=== PATIENT | female | born 1985 | race Caucasian/White ===

== ENCOUNTER 2018-08-11 15:03 | Emergency (ER) | payer MEDICARE, MEDICAID ==
--- NOTE | 2018-08-11 15:27 | ER Document Report ---
ED Medical Screen (RME) - General Chief Complaint: Suicidal Ideation Stated Complaint: PSYCH EVAL/SUICIDAL IDEATION Time Seen by Provider: 08/11/18 15:21 Notes: Patient is a 33-year-old female with autism spectrum disorder and depression that presents to the emergency department for chief complaint of suicidal ideation and attempt. 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 ROS: Other than noted above, the 12 point review of systems was reviewed with the patient and were negative, all pertinent findings are included in the HPI. PHYSICAL EXAMINATION: Vital signs reviewed. GENERAL: Well-appearing, well-nourished and in no acute distress. HEAD: Atraumatic, normocephalic. EYES: Pupils equal round extraocular movements intact, conjunctiva are normal. ENT: Nares patent NECK: Normal range of motion CV: Heart rate tachycardic, regular rhythm LUNGS: No respiratory distress Musculoskeletal: Normal range of motion NEUROLOGICAL: Normal speech Skin: There is a superficial laceration to the left wrist, no active bleeding, tendon function intact. PSYCH: Flat affect, constantly rocking in the chair MDM: Patient seen and examined for rapid initial assessment. Vital signs reviewed. A comprehensive ED assessment and evaluation of the patient, analysis of test results and completion of the medical decision making process will be conducted by additional ED providers. *Note is created using voice recognition software and may contain spelling, syntax or grammatical errors. TRAVEL OUTSIDE OF THE [place] IN LAST 30 DAYS: No - Related Data Allergies/Adverse Reactions: Penicillins Allergy (Verified 08/11/18 15:04) Physical Exam - Vital signs Vitals: Temp Pulse Resp BP Pulse Ox 97.8 F 113 H 18 118/69 97 08/11/18 15:07 08/11/18 15:07 08/11/18 15:07 08/11/18 15:07 08/11/18 15:07 Course - Vital Signs Vital signs: Temp Pulse Resp BP Pulse Ox 97.8 F 113 H 18 118/69 97 08/11/18 15:07 08/11/18 15:07 08/11/18 15:07 08/11/18 15:07 08/11/18 15:07
--- NOTE | 2018-08-11 15:49 | EKG REPORT ---
SEVERITY:- OTHERWISE NORMAL ECG - SINUS TACHYCARDIA : Confirmed by: Serena Augustin MD 11-Aug-2018 15:48:46
[2018-08-11 15:53] LABS: ABSOLUTE BASOPHILS # (AUTO) 0.1 10^3/uL (0.0-0.2); ABSOLUTE EOSINOPHILS # (AUTO) 0.6 10^3/uL (0.0-0.6); ABSOLUTE LYMPHOCYTES (AUTO) 2.7 10^3/uL (0.5-4.7); ABSOLUTE MONOCYTES (AUTO) 0.7 10^3/uL (0.1-1.4); ABSOLUTE NEUT (AUTO) 9.2 10^3/uL (1.7-8.2); BASOPHILS % (AUTO) 0.9 % (0-2); EOSINOPHILS % (AUTO) 4.5 % (0-6); HEMATOCRIT 36.2 % (36.0-47.0); HEMOGLOBIN 11.7 g/dL (12.0-15.5); LYMPHOCYTES % (AUTO) 20.3 % (13-45); MEAN CORPUSCULAR HEMOGLOBIN 24.6 pg (27.0-33.4); MEAN CORPUSCULAR HGB CONC 32.3 g/dL (32.0-36.0); MEAN CORPUSCULAR VOLUME 76 fl (80-97); MONOCYTES % (AUTO) 5.1 % (3-13); PLATELET COUNT 415 10^3/uL (150-450); RED BLOOD COUNT 4.75 10^6/uL (3.72-5.28); RED CELL DISTRIBUTION WIDTH 15.6 % (11.5-14.0); SEGMENTED NEUTROPHILS % (AUTO) 69.2 % (42-78); TOTAL CELLS COUNTED % (AUTO) 100 %; WHITE BLOOD COUNT 13.3 10^3/uL (4.0-10.5)
[2018-08-11 16:03] LABS: APPEARANCE,URINE SLIGHTLY-CLOUDY; BILIRUBIN,URINE NEGATIVE (NEGATIVE); COLOR,URINE YELLOW; GLUCOSE, URINE NEGATIVE (NEGATIVE); KETONES,URINE NEGATIVE (NEGATIVE); LEUKOCYTE ESTERASE,URINE NEGATIVE (NEGATIVE); NITRITE,URINE NEGATIVE (NEGATIVE); PROTEIN,URINE >=500 mg/dL (NEGATIVE); URINE SPECIFIC GRAVITY 1.025; UROBILINOGEN,URINE NEGATIVE mg/dL (<2.0)
[2018-08-11 16:09] LABS: URINE AMPHETAMINES SCREEN NEGATIVE; URINE BARBITURATES SCREEN NEGATIVE; URINE BENZODIAZEPINES SCREEN NEGATIVE; URINE COCAINE SCREEN NEGATIVE; URINE MARIJUANA (THC) SCREEN NEGATIVE; URINE METHADONE SCREEN NEGATIVE; URINE PHENCYCLIDINE SCREEN NEGATIVE
[2018-08-11 16:11] LABS: ALANINE AMINOTRANSFERASE 11 U/L (9-52); ALBUMIN 4.3 g/dL (3.5-5.0); ALKALINE PHOSPHATASE 114 U/L (38-126); ANION GAP 15 (5-19); ASPARTATE AMINO TRANSFERASE 23 U/L (14-36); BILIRUBIN,DIRECT 0.2 mg/dL (0.0-0.4); BILIRUBIN,TOTAL 0.3 mg/dL (0.2-1.3); BLOOD UREA NITROGEN 13 mg/dL (7-20); CALCIUM 9.9 mg/dL (8.4-10.2); CARBON DIOXIDE 25 mmol/L (22-30); CHLORIDE 104 mmol/L (98-107); GLUCOSE 111 mg/dL (75-110); POTASSIUM 4.2 mmol/L (3.6-5.0); SODIUM 143.6 mmol/L (137-145); TOTAL PROTEIN 8.1 g/dL (6.3-8.2)
[2018-08-11 16:12] LABS: ACETAMINOPHEN < 10 ug/mL (10-30); ALCOHOL < 10 mg/dL (NONE DETECTED); SALICYLATE < 1.0 mg/dL (2.0-20.0)
--- NOTE | 2018-08-11 16:19 | ER Document Report ---
ED General - General Chief Complaint: Suicidal Ideation Stated Complaint: PSYCH EVAL/SUICIDAL IDEATION Time Seen by Provider: 08/11/18 15:21 TRAVEL OUTSIDE OF THE [place] IN LAST 30 DAYS: No - HPI Notes: Patient is a 33-year-old female with a history of autism, anxiety, bipolar who presents to the ED with sister for suicidal ideation, planning, and self-harm with a thumbtack. The situation began when she was at her program and was from a boy that she likes. She immediately grabbed a thumb tack off of the wall and started cutting her wrists which is when the program called her sister who picked her up. Sister states that when they got home the patient was very agitated and started throwing things and trying to grab knives to slit her wrists. Patient stated that she wanted to come to the emergency department. Sister states that she has a history of this type of behavior in the past, But it has never lasted this long. Usually her behavior comes down within an hour but this 1 has remained for multiple. She has otherwise been eating and drinking without difficulties. She is urinating normally and having normal bowel movements. She denies any smoking or illicit drug abuse. Denies any headache, fever, head injury, neck pain, changes in vision/speech/hearing, URI, sore throat, chest pain, palpitations, syncope, cough, shortness of breath , wheeze, dyspnea, abdominal pain, nausea/vomiting/diarrhea, urinary retention, dysuria, hematuria, loss of control of bowel or bladder, numbness/tingling, saddle anesthesia, muscle paralysis/weakness, or rash. - Related Data Allergies/Adverse Reactions: iodine Allergy (Verified 08/11/18 15:26) Hives Penicillins Allergy (Verified 08/11/18 15:04) Past Medical History - Social History Smoking Status: Never Smoker Chew tobacco use (# tins/day): No Frequency of alcohol use: Rare Drug Abuse: None Family History: Reviewed & Not Pertinent Patient has suicidal ideation: Yes Patient has homicidal ideation: No - Past Medical History Cardiac Medical History: Reports: Hx Hypercholesterolemia Renal/ Medical History: Denies: Hx Peritoneal Dialysis Psychiatric Medical History: Reports: Hx Bipolar Disorder, Hx Depression Past Surgical History: Reports: Hx Breast Surgery, Hx Cholecystectomy, Hx Tubal Ligation Review of Systems - Review of Systems -: Yes All other systems reviewed and negative Physical Exam - Vital signs Vitals: Temp Pulse Resp BP Pulse Ox 97.8 F 113 H 18 118/69 97 08/11/18 15:07 08/11/18 15:07 08/11/18 15:07 08/11/18 15:07 08/11/18 15:07 - Notes Notes: PHYSICAL EXAMINATION: GENERAL: Well-appearing, well-nourished and in no acute distress. A&Ox4. Answers questions appropriately. Smiling, cooperative. HEAD: Atraumatic, normocephalic. EYES: Pupils equal round and reactive to light, extraocular movements intact, sclera anicteric, conjunctiva are normal. ENT: EAC clear b/l. TM's intact b/l without erythema, fluid, or perforation. Nares patent and without discharge. oropharynx clear without exudates. No tonsilar hypertrophy or erythema. Moist mucous membranes. No sinus tenderness. NECK: Normal range of motion, supple without lymphadenopathy LUNGS: Breath sounds clear to auscultation bilaterally and equal. No wheezes rales or rhonchi. HEART: Regular rate and rhythm without murmurs, rubs, gallops. ABDOMEN: Soft, nontender, nondistended abdomen. No guarding, no rebound. No masses appreciated. Normal bowel sounds present. No CVA tenderness bilaterally. Musculoskeletal: FROM to passive/active. Strength 5+/5. Extremities: No cyanosis, clubbing, or edema b/l. Peripheral pulses 2+. Capillary refill less than 3 seconds. NEUROLOGICAL: Cranial nerves grossly intact. Normal speech, normal gait. Normal sensory, motor exams PSYCH: Normal mood, normal affect. SKIN: you can see that the patient bites her nails often. There are 3 superficial abrasions horizontally on the left wrist, none on the right. Pt is right hand-ed. Course - Re-evaluation Re-evalutation: 08/11/18 16:20 Labs and EKG grossly unremarkable. Pt currently stable and without any agressive behavior. Pt medically cleared pending TSH lab that is still pending. Psychology team will be assessing soon. 08/11/18 18:20 TSH negative. Our psychology team placed patient on a '24 hour hold' for further evaluation in the morning. Pt in agreement with plan. No new concerns or complaints. Dinner tray has already been ordered for her. - Vital Signs Vital signs: Temp Pulse Resp BP Pulse Ox 97.8 F 113 H 18 118/69 97 08/11/18 15:07 08/11/18 15:07 08/11/18 15:07 08/11/18 15:07 08/11/18 15:07 - Laboratory Result Diagrams: 08/11/18 15:35 08/11/18 15:35 Laboratory results interpreted by me: 08/11/18 08/11/18 08/11/18 15:21 15:35 15:35 WBC 13.3 H Hgb 11.7 L MCV 76 L MCH 24.6 L RDW 15.6 H Absolute Neutrophils 9.2 H Glucose 111 H Urine Protein >=500 H Urine Ascorbic Acid 40 H Salicylates < 1.0 L Acetaminophen < 10 L Discharge - Discharge Clinical Impression: Suicidal behavior with attempted self-injury Condition: Stable Disposition: PSYCH HOSP/UNIT
--- NOTE | 2018-08-11 20:42 | PSYCHOLOGICAL NOTE ---
Psych Note - Psych Note Date seen by psych provider: 08/11/18 Psych Note: Reason for Consult: Suicide Ideation Patient is a 33-year-old female with a history of autism, anxiety, bipolar who presents to the ED with sister for suicidal ideation, planning, and self-harm with a thumbtack. Autism Impression/plan: Patient is recommended for overnight mental health observation. Patient had a behavioral outburst at her day program after being from a chandu she was getting to "physical" with. She has superficial cuts on her wrist and her mobile electronics installer (sister) reports the patient will have outbursts like this every few months, normally over a chandu. The patient still continues to disclose being upset. Patient and family will benefit with respite and patient will be re-evaluated tomorrow with probable discharge in the morning. Dr. Mckenna was consulted on the care and management of this patient; attending physician is in agreement with recommendations and disposition.
[2018-08-12] MEDS ORDERED: MONTELUKAST SODIUM 10 MG TABLET PO ONE (10:09)
--- NOTE | 2018-08-12 10:09 | ER Document Report ---
Doctor's Note Notes: 08/12/18 10:08 As the rounding physician this AM, I assessed the patient's labs, vitals, and records. No concerning findings this morning. Patient denies any acute complaints. Patient is cleared for disposition by psychiatry. Patient requesting Singulair. Patient will be discharged home with recommendations to continue her home medications. PHYSICAL EXAMINATION: GENERAL: Well-appearing, well-nourished and in no acute distress. HEAD: Atraumatic, normocephalic. EYES: Pupils equal round extraocular movements intact, conjunctiva are normal. ENT: Nares patent NECK: Normal range of motion LUNGS: No respiratory distress Musculoskeletal: Normal range of motion NEUROLOGICAL: Normal speech, normal gait. PSYCH: Normal mood, normal affect. SKIN: Warm, Dry, normal turgor, no rashes or lesions noted. 08/12/18 10:48
[2018-08-12 11:02] VITALS: BP 122/68
== END 2018-08-12 11:02 | disposition home or self-care (01) ==
LOC: ER 15:03
DX: S60.812A Abrasion of left wrist, initial encounter (principal); W26.8XXA Contact with other sharp object(s), not elsewhere classified, initial encounter; F84.0 Autistic disorder; Z88.0 Allergy status to penicillin
CPT/HCPCS: 93005; 99285; 36415; 80307 ×4; 84443; 85025; 80053; 81001; 93010; A9270

== ENCOUNTER 2019-02-20 18:18 | Emergency (ER) | payer MEDICARE, MEDICAID ==
--- NOTE | 2019-02-20 18:45 | ER Document Report ---
ED Medical Screen (RME) - General Chief Complaint: Suicidal Ideation Stated Complaint: SI WITH PLANS Time Seen by Provider: 02/20/19 18:38 Primary Care Provider: VALORIE SHUKLA DO [Primary Care Provider] - Follow up as needed Notes: Patient is a 33-year-old female who presents to the emergency department with suicidal ideations. She states that last night she took some toenail clippers and tried to cut her thigh. She states that she wants to hurt herself and sometimes hurt her sister. She states that she feels like she is being taken advantage of by some men. She is bipolar, has depression, and is autistic. She is taking her medications as prescribed. Exam: Breath sounds normal. S1-S2. Normal rate. Calm and cooperative. I have greeted and performed a rapid initial assessment of this patient. A comprehensive ED assessment and evaluation of the patient, analysis of test results and completion of medical decision making process will be conducted by an additional ED providers. TRAVEL OUTSIDE OF THE [place] IN LAST 30 DAYS: No - Related Data Allergies/Adverse Reactions: iodine Allergy (Verified 08/11/18 15:26) Hives Penicillins Allergy (Verified 08/11/18 15:04) Past Medical History - Past Medical History Cardiac Medical History: Reports: Hx Hypercholesterolemia Renal/ Medical History: Denies: Hx Peritoneal Dialysis Psychiatric Medical History: Reports: Hx Bipolar Disorder, Hx Depression Past Surgical History: Reports: Hx Breast Surgery, Hx Cholecystectomy, Hx Tubal Ligation Physical Exam - Vital signs Vitals: Temp Pulse Resp BP Pulse Ox 98.3 F 91 12 116/63 97 02/20/19 18:36 02/20/19 18:36 02/20/19 18:36 02/20/19 18:36 02/20/19 18:36 Course - Vital Signs Vital signs: Temp Pulse Resp BP Pulse Ox 98.3 F 91 12 116/63 97 02/20/19 18:36 02/20/19 18:36 02/20/19 18:36 02/20/19 18:36 02/20/19 18:36 Doctor's Discharge - Discharge Referrals: VALORIE SHUKLA DO [Primary Care Provider] - Follow up as needed
[2019-02-20 19:18] LABS: ABSOLUTE BASOPHILS # (AUTO) 0.1 10^3/uL (0.0-0.2); ABSOLUTE LYMPHOCYTES (AUTO) 3.3 10^3/uL (0.5-4.7); ABSOLUTE NEUT (AUTO) 7.7 10^3/uL (1.7-8.2); BASOPHILS % (AUTO) 0.5 % (0-2); EOSINOPHILS % (AUTO) 7.3 % (0-6); HEMATOCRIT 41.2 % (36.0-47.0); HEMOGLOBIN 13.6 g/dL (12.0-15.5); LYMPHOCYTES % (AUTO) 25.5 % (13-45); MEAN CORPUSCULAR HEMOGLOBIN 26.9 pg (27.0-33.4); MEAN CORPUSCULAR HGB CONC 33.1 g/dL (32.0-36.0); MEAN CORPUSCULAR VOLUME 81 fl (80-97); MONOCYTES % (AUTO) 7.7 % (3-13); PLATELET COUNT 365 10^3/uL (150-450); RED BLOOD COUNT 5.07 10^6/uL (3.72-5.28); RED CELL DISTRIBUTION WIDTH 16.2 % (11.5-14.0); TOTAL CELLS COUNTED % (AUTO) 100 %; WHITE BLOOD COUNT 13.1 10^3/uL (4.0-10.5)
[2019-02-20 19:36] LABS: ALANINE AMINOTRANSFERASE 51 U/L (9-52); ALBUMIN 4.5 g/dL (3.5-5.0); ALKALINE PHOSPHATASE 110 U/L (38-126); ANION GAP 14 (5-19); ASPARTATE AMINO TRANSFERASE 61 U/L (14-36); BILIRUBIN,DIRECT 0.3 mg/dL (0.0-0.4); BILIRUBIN,TOTAL 0.5 mg/dL (0.2-1.3); BLOOD UREA NITROGEN 10 mg/dL (7-20); CALCIUM 10.3 mg/dL (8.4-10.2); CARBON DIOXIDE 27 mmol/L (22-30); CHLORIDE 105 mmol/L (98-107); GLUCOSE 89 mg/dL (75-110); POTASSIUM 4.5 mmol/L (3.6-5.0); SODIUM 145.8 mmol/L (137-145); TOTAL PROTEIN 8.4 g/dL (6.3-8.2)
[2019-02-20 19:37] LABS: ACETAMINOPHEN < 10 ug/mL (10-30); ALCOHOL < 10 mg/dL (NONE DETECTED); SALICYLATE < 1.0 mg/dL (2.0-20.0)
[2019-02-20 19:45] LABS: URINE AMPHETAMINES SCREEN NEGATIVE; URINE BARBITURATES SCREEN NEGATIVE; URINE BENZODIAZEPINES SCREEN NEGATIVE; URINE COCAINE SCREEN NEGATIVE; URINE MARIJUANA (THC) SCREEN NEGATIVE; URINE METHADONE SCREEN NEGATIVE; URINE PHENCYCLIDINE SCREEN NEGATIVE
[2019-02-20 19:52] LABS: AMORPHOUS SEDIMENT,URINE TRACE /HPF; APPEARANCE,URINE CLOUDY; BILIRUBIN,URINE NEGATIVE (NEGATIVE); GLUCOSE, URINE NEGATIVE (NEGATIVE); KETONES,URINE NEGATIVE (NEGATIVE); LEUKOCYTE ESTERASE,URINE MODERATE (NEGATIVE); NITRITE,URINE NEGATIVE (NEGATIVE); PROTEIN,URINE 30 mg/dL (NEGATIVE); URINE SPECIFIC GRAVITY 1.019; UROBILINOGEN,URINE NEGATIVE mg/dL (<2.0)
[2019-02-20 19:55] LABS: COLOR,URINE YELLOW
--- NOTE | 2019-02-20 21:31 | ER Document Report ---
ED Psych Disorder / Suicide - General Mode of Arrival: Ambulatory Information source: Patient TRAVEL OUTSIDE OF THE [place] IN LAST 30 DAYS: No <MATTHEW PINTO - Last Filed: 02/20/19 21:29> <NAVI TRIPP - Last Filed: 02/21/19 13:19> <PHILLIP SHARPE - Last Filed: 02/21/19 14:30> - General Chief Complaint: Suicidal Ideation Stated Complaint: SI WITH PLANS Time Seen by Provider: 02/20/19 18:38 Primary Care Provider: [facility] [Provider Group] - 02/22/19 [facility] [Outside] - 02/22/19 [facility] [Outside] - Follow up as needed VALORIE SHUKLA DO [NO LOCAL MD] - Follow up as needed Notes: Patient is an otherwise healthy 33-year-old female presented to the emergency de partment with mobile crisis for suicidal ideation. Patient reports history of bipolar, depression, autism and history of self-mutilation. Patient reports over the last few days she has been having increased depression. She states that yesterday she made some superficial cuts to her right thigh. She reports she is seen by a provider at [facility] for her medication management. [facility] she describes as a day [facility]. Patient denies any homicidal ideations. At the time of my evaluation patient reports that her suicidal thoughts have subsided. Patient does report being here for an overnight stay approximately 1 year ago. (MATTHEW PINTO) - Related Data Allergies/Adverse Reactions: iodine Allergy (Verified 08/11/18 15:26) Hives Penicillins Allergy (Verified 08/11/18 15:04) Past Medical History - Social History Smoking Status: Never Smoker Frequency of alcohol use: None Drug Abuse: None Family History: Reviewed & Not Pertinent Patient has suicidal ideation: Yes Patient has homicidal ideation: No - Past Medical History Cardiac Medical History: Reports: Hx Hypercholesterolemia Renal/ Medical History: Denies: Hx Peritoneal Dialysis Psychiatric Medical History: Reports: Hx Bipolar Disorder, Hx Depression Past Surgical History: Reports: Hx Breast Surgery, Hx Cholecystectomy, Hx Tubal Ligation <MATTHEW PINTO - Last Filed: 02/20/19 21:29> - Vital signs Vitals: Temp Pulse Resp BP Pulse Ox 98.3 F 91 12 116/63 97 06/01/19 18:36 02/20/19 18:36 02/20/19 18:36 02/20/19 18:36 02/20/19 18:36 Course - Laboratory Result Diagrams: 02/20/19 19:00 02/20/19 19:00 <MATTHEW PINTO - Last Filed: 02/20/19 21:29> - Laboratory Result Diagrams: 02/20/19 19:00 02/20/19 19:00 <NAVI TRIPP - Last Filed: 02/21/19 13:19> - Laboratory Result Diagrams: 02/20/19 19:00 02/20/19 19:00 <PHILLIP SHARPE - Last Filed: 02/21/19 14:30> - Vital Signs Vital signs: Temp Pulse Resp BP Pulse Ox 97.8 F 87 20 120/68 100 02/21/19 06:00 02/21/19 14:22 02/21/19 06:00 02/21/19 14:22 02/21/19 14:22 - Laboratory Laboratory results interpreted by me: 02/20/19 02/20/19 02/20/19 19:00 19:00 19:00 WBC 13.1 H MCH 26.9 L RDW 16.2 H Eosinophils % 7.3 H Absolute Eosinophils 1.0 H Sodium 145.8 H Calcium 10.3 H AST 61 H Total Protein 8.4 H Urine Protein 30 H Urine Blood LARGE H Ur Leukocyte Esterase MODERATE H Salicylates < 1.0 L Acetaminophen < 10 L Discharge <MATTHEW PINTO - Last Filed: 02/20/19 21:29> <NAVI TRIPP - Last Filed: 02/21/19 13:19> <PHILLIP SHARPE - Last Filed: 02/21/19 14:30> - Discharge Clinical Impression: Suicidal ideation, Self-injurious behavior, History of autism Clinical Impression: (Ruled Out): High-functioning autism spectrum disorder Condition: Stable Disposition: HOME, SELF-CARE Additional Instructions: You have been evaluated by both medical and behavioral health providers while in the emergency department. You have been cleared from both acute medical and psychiatric issues. It is felt your self injury and expression of suicidal ideation is a symptom of your Autism Spectrum Disorder and behavioral (not getting what your want). There are better coping skills that can be utilized. You and your therapist should identify triggers and coping skills that are positive/effective. DEPRESSION: (often a symptoms seen in individuals with Autism Spectrum Disorder, may present behaviorally) Your evaluation reveals that you have mental depression. While symptoms may be vague, they often include disturbance of sleep, fatigue, loss of appetite, and general loss of interest in life. While depression may be a side effect of drugs, or a reaction to a major change in your life, many cases have no known cause. If depression is acute, and related to a major loss in your life, you can expect it to clear completely with time. If you have been depressed a long time, are prone to repeated bouts of depression or low mood, or have been thinking of suicide, get help. Depression can be treated with anti-depressant medication and counselling. Long-term depression will often take a few weeks to clear, even with appropriate medication. Follow-up care is important. Anxiety (often a symptoms seen in individuals with Autism Spectrum Disorder, may present behaviorally) The physician feels that some of your health problems are being caused by anxiety. Anxiety affects your health in many ways. Anxiety alone can cause palpitations, sweats, chest pains, abdominal pains, shortness of breath, and headaches. It contributes to ulcer disease, high blood pressure, irritable bowel syndrome, and has been shown to cause flare-ups of many other diseases. Anxiety is not a simple disorder to treat. If the anxiety is due to recent life stresses, you may simply need time to "work through" the changes. If the anxiety is due to an underlying unhappiness with yourself or due to psychiatric disturbance, professional help will be needed. Your physician can refer you for further help if needed. Anti-anxiety medication is occasionally given if the stress is acute or if you are having trouble sleeping. Chronic or frequent use of these medications is not a good idea because the body becomes reliant on it, preventing you from dealing with life's normal stresses. SUICIDAL IDEATION: (also self injurious behavior) Suicidal ideation is a common medical term for thoughts about suicide, which may be as detailed as a formulated plan, without the suicidal act itself. Although most people who undergo suicidal ideation do not commit suicide, some go on to make suicide attempts. The range of suicidal ideation varies greatly from fleeting to detailed planning, role playing, and unsuccessful attempts. While thoughts about suicide are common, most people do not carry out serious actions to commit suicide. Based upon your evaluation and discussion with you, we do not believe you are currently at risk to act upon your thoughts of suicide. You have agreed to return to the Emergency Department, at any time, if you feel inclined to act upon your suicidal thoughts. FOLLOW-UP CARE: You should follow up with Dr. Weathers at [facility] ([facility]). for medication management first thing tomorrow (02/22/19) morning as a walk in. You should continue individual therapy with Dylan Kessler at [facility]. You should continue your day treatment program at [facility] Friday-Friday. Coordination with all professional providers will be important for behavior management/modification. You have been provided the [facility] Mobile [facility] number for crisis, talk therapy and linkage to other services/supports. If you experience worsening or a significant change in your symptoms, notify the physician immediately, utilize mobile crisis or return to the Emergency Department at any time for re-evaluation. Prescriptions: Sulfamethoxazole/Trimethoprim [Septra-Ds 800-160 mg Tablet] 1 tab PO BID #6 tablet Referrals: VALORIE SHUKLA, [NO LOCAL MD] - Follow up as needed [facility] [Outside] - Follow up as needed [facility] [Outside] - 02/22/19 [facility] [Provider Group] - 02/22/19
[2019-02-20] MEDS ORDERED: SULFAMETHOXAZOLE/TRIMETHOPRIM 800-160 MG TABLET PO ONE (22:00)
[2019-02-20] MEDS: SULFAMETHOXAZOLE/TRIMETHOPRIM 800-160 MG TABLET PO SCH (23:03)
--- NOTE | 2019-02-20 23:48 | EKG REPORT ---
SEVERITY:- NORMAL ECG - SINUS RHYTHM : Confirmed by: Serena Augustin MD 20-Feb-2019 23:47:25
[2019-02-21] MEDS: SULFAMETHOXAZOLE/TRIMETHOPRIM 800-160 MG TABLET PO SCH (09:01)
[2019-02-21 14:24] VITALS: BP 120/68
--- NOTE | 2019-02-21 14:33 | ER Document Report ---
Doctor's Note Notes: 02/21/19 14:32 Rounds: Chart reviewed and patient interviewed. Labs suggest a UTI and patient has been started on a sulfa antibiotic. Vital signs are all essentially normal. Patient appears to be medically stable for transfer or discharge. Yelena Dawkins MD 02/21/19 14:33 Patient was given a prescription for Septra DS to take twice a day for the next 3 days. Yelena Dawkins MD
--- NOTE | 2019-02-23 12:40 | PSYCHOLOGICAL NOTE ---
Psych Note - Psych Note Date seen by psych provider: 02/21/19 Psych Note: Diagnosis: Autism Spectrum Disorder by History Bipolar by History Depression by History Impression/Plan: Patient is cleared from acute psychiatric services. She denied current SI/HI and no observed psychosis. She said she felt better today than yesterday and was in the ED for cutting/suicidal. She reported she sees female Dr. Weathers at [facility] for medication management, just started therapy a couple weeks ago with Dylan Ricketts at [facility] aqnd goes to a day treatment program M-F at [place]. Obtained collateral from sister who noted patient gets a temper tantrum when she doesn't get what she wants, it has happened numerous times, understands it will keep happening due to Autism and had been trying to work with Day Treatment for behavior management. She agreed to provide transportation for patient, for follow up with medication provider as soon as possible, continue therapy and work with Day Treatment for behavior modification/consistency (there and in the home). Provided the outpatient MH resource sheet which highlighted [facility]. Consulted with Dr. Mckenna regarding the management and care of patient. ED Physician in agreement with recommendations.
== END 2019-02-21 14:23 | disposition home or self-care (01) ==
LOC: ER 18:18
DX: R45.851 Suicidal ideations (principal); F31.9 Bipolar disorder, unspecified; N39.0 Urinary tract infection, site not specified; F84.0 Autistic disorder; Z91.5 Personal history of self-harm; E78.00 Pure hypercholesterolemia, unspecified; Z90.49 Acquired absence of other specified parts of digestive tract; Z98.51 Tubal ligation status
CPT/HCPCS: 93005; 99285; 36415; 80307 ×4; 85025; 80053; 81001; 93010; A9270 ×2

== ENCOUNTER 2019-08-11 17:58 | Emergency (ER) | payer MEDICARE, MEDICAID ==
--- NOTE | 2019-08-11 18:46 | ER Document Report ---
ED Medical Screen (RME) - General Chief Complaint: Psych Problem Stated Complaint: PSYCH EVAL/SUICIDAL IDEATION Time Seen by Provider: 08/11/19 18:41 Primary Care Provider: EDWAR BOONE PA-C [Primary Care Provider] - Follow up as needed Notes: Patient is a 34-year-old female presents to the emergency department for suicidal ideations. Voices she got a fight with her family today. Voices she wants to "cut my wrists." Patient is in the emergency department with patient is a 53-year-old female presentsHer counselor. Counselor does have a list of medications the patient takes on a daily basis. Patient's denying any other complaints at this time. GENERAL: Alert, interacts well. No acute distress. PSYCH: Flat affect, normal mood. I have greeted and performed a rapid initial assessment of this patient. A comprehensive ED assessment and evaluation of the patient, analysis of test results and completion of the medical decision making process will be conducted by additional ED providers. I have specifically instructed the patient or family members with the patient to immediately return to any nursing staff should anything change in the patient's condition or with their chief complaint. This medical record was dictated with voice recognizing software. There may be grammatical, syntax errors that are unintended. TRAVEL OUTSIDE OF THE [place] IN LAST 30 DAYS: No - Related Data Allergies/Adverse Reactions: iodine Allergy (Verified 08/11/18 15:26) Hives Penicillins Allergy (Verified 08/11/18 15:04) Past Medical History - Past Medical History Cardiac Medical History: Reports: Hx Hypercholesterolemia Renal/ Medical History: Denies: Hx Peritoneal Dialysis Psychiatric Medical History: Reports: Hx Bipolar Disorder, Hx Depression Past Surgical History: Reports: Hx Breast Surgery, Hx Cholecystectomy, Hx Tubal Ligation Physical Exam - Vital signs Vitals: Temp Pulse Resp BP Pulse Ox 97.7 F 100 18 108/64 97 08/11/19 18:13 08/11/19 18:13 08/11/19 18:13 08/11/19 18:13 08/11/19 18:13 Course - Vital Signs Vital signs: Temp Pulse Resp BP Pulse Ox 97.7 F 100 18 108/64 97 08/11/19 18:13 08/11/19 18:13 08/11/19 18:13 08/11/19 18:13 08/11/19 18:13 Doctor's Discharge - Discharge Referrals: EDWAR BOONE PA-C [Primary Care Provider] - Follow up as needed
[2019-08-11 19:03] LABS: ABSOLUTE BASOPHILS # (AUTO) 0.1 10^3/uL (0.0-0.2); ABSOLUTE EOSINOPHILS # (AUTO) 0.8 10^3/uL (0.0-0.6); ABSOLUTE MONOCYTES (AUTO) 0.9 10^3/uL (0.1-1.4); BASOPHILS % (AUTO) 0.5 % (0-2); EOSINOPHILS % (AUTO) 5.6 % (0-6); HEMATOCRIT 36.2 % (36.0-47.0); HEMOGLOBIN 11.9 g/dL (12.0-15.5); LYMPHOCYTES % (AUTO) 27.3 % (13-45); MEAN CORPUSCULAR HEMOGLOBIN 27.2 pg (27.0-33.4); MEAN CORPUSCULAR VOLUME 83 fl (80-97); MONOCYTES % (AUTO) 6.3 % (3-13); PLATELET COUNT 357 10^3/uL (150-450); RED BLOOD COUNT 4.39 10^6/uL (3.72-5.28); RED CELL DISTRIBUTION WIDTH 14.2 % (11.5-14.0); SEGMENTED NEUTROPHILS % (AUTO) 60.3 % (42-78); TOTAL CELLS COUNTED % (AUTO) 100 %; WHITE BLOOD COUNT 14.8 10^3/uL (4.0-10.5)
[2019-08-11 19:25] LABS: ALBUMIN 3.9 g/dL (3.5-5.0); ALKALINE PHOSPHATASE 88 U/L (38-126); ANION GAP 10 (5-19); ASPARTATE AMINO TRANSFERASE 37 U/L (14-36); BILIRUBIN,DIRECT 0.1 mg/dL (0.0-0.4); BILIRUBIN,TOTAL 0.4 mg/dL (0.2-1.3); BLOOD UREA NITROGEN 9 mg/dL (7-20); CALCIUM 9.4 mg/dL (8.4-10.2); CARBON DIOXIDE 26 mmol/L (22-30); CHLORIDE 101 mmol/L (98-107); GLUCOSE 114 mg/dL (75-110); POTASSIUM 4.2 mmol/L (3.6-5.0); TOTAL PROTEIN 7.5 g/dL (6.3-8.2)
[2019-08-11 19:50] LABS: APPEARANCE,URINE CLEAR; BILIRUBIN,URINE NEGATIVE (NEGATIVE); COLOR,URINE STRAW; GLUCOSE, URINE NEGATIVE (NEGATIVE); KETONES,URINE NEGATIVE (NEGATIVE); LEUKOCYTE ESTERASE,URINE NEGATIVE (NEGATIVE); NITRITE,URINE NEGATIVE (NEGATIVE); PROTEIN,URINE NEGATIVE (NEGATIVE); URINE SPECIFIC GRAVITY 1.004; UROBILINOGEN,URINE NEGATIVE mg/dL (<2.0)
[2019-08-11 20:03] LABS: URINE AMPHETAMINES SCREEN NEGATIVE; URINE BARBITURATES SCREEN NEGATIVE; URINE BENZODIAZEPINES SCREEN NEGATIVE; URINE COCAINE SCREEN NEGATIVE; URINE MARIJUANA (THC) SCREEN NEGATIVE; URINE METHADONE SCREEN NEGATIVE; URINE PHENCYCLIDINE SCREEN NEGATIVE
[2019-08-11 20:20] LABS: ACETAMINOPHEN < 10 ug/mL (10-30); ALCOHOL < 10 mg/dL (NONE DETECTED); SALICYLATE < 1.0 mg/dL (2.0-20.0)
--- NOTE | 2019-08-11 20:29 | EKG REPORT ---
SEVERITY:- BORDERLINE ECG - SINUS RHYTHM BORDERLINE T ABNORMALITIES, ANTERIOR LEADS : Confirmed by: Eduar Olivier MD 11-Aug-2019 20:29:04
--- NOTE | 2019-08-12 01:17 | ER Document Report ---
Entered by SAM BEAVER SCRIBE 08/11/192001 Acting as scribe for:BHUPENDRA MILLIGAN DO ED Psych Disorder / Suicide - General Chief Complaint: Psych Problem Stated Complaint: PSYCH EVAL/SUICIDAL IDEATION Time Seen by Provider: 08/11/19 18:41 Primary Care Provider: EDWAR BOONE PA-C [Primary Care Provider] - Follow up as needed Mode of Arrival: Ambulatory Information source: Patient Notes: This 34-year-old female presents to the emergency department today for complaints of suicidal ideation. According to nursing notes, the patient has gotten in recent arguments with family members and wants to "cut her wrist until she bleeds out". TRAVEL OUTSIDE OF THE [place] IN LAST 30 DAYS: No - Related Data Allergies/Adverse Reactions: iodine Allergy (Verified 08/11/19 19:13) Hives Penicillins Allergy (Verified 08/11/19 19:13) Home Medications: Lithum. Vraylar. Benztropine. Propanolol. Montelukast Past Medical History - General Information source: Patient - Social History Smoking Status: Never Smoker Cigarette use (# per day): No Frequency of alcohol use: Social Drug Abuse: None Lives with: Family Family History: Reviewed & Not Pertinent Patient has suicidal ideation: Yes Patient has homicidal ideation: No - Past Medical History Cardiac Medical History: Reports: Hx Hypercholesterolemia Renal/ Medical History: Denies: Hx Peritoneal Dialysis Psychiatric Medical History: Reports: Hx Bipolar Disorder, Hx Depression Past Surgical History: Reports: Hx Breast Surgery, Hx Cholecystectomy, Hx Tubal Ligation Review of Systems - Review of Systems Constitutional: No symptoms reported EENT: No symptoms reported Cardiovascular: No symptoms reported Respiratory: No symptoms reported Gastrointestinal: No symptoms reported Genitourinary: No symptoms reported Female Genitourinary: No symptoms reported Musculoskeletal: No symptoms reported Skin: No symptoms reported Hematologic/Lymphatic: No symptoms reported Neurological/Psychological: See HPI, Suicidal ideation -: Yes All other systems reviewed and negative Physical Exam - Vital signs Vitals: Temp Pulse Resp BP Pulse Ox 97.7 F 100 18 108/64 97 08/11/19 18:13 08/11/19 18:13 08/11/19 18:13 08/11/19 18:13 08/11/19 18:13 Interpretation: Normal - General General appearance: Appears well, Alert - HEENT Head: Normocephalic, Atraumatic Eyes: Normal Pupils: PERRL - Respiratory Respiratory status: No respiratory distress Chest status: Nontender Breath sounds: Normal Chest palpation: Normal - Cardiovascular Rhythm: Regular Heart sounds: Normal auscultation Murmur: No - Abdominal Inspection: Normal Distension: No distension Bowel sounds: Normal Tenderness: Nontender Organomegaly: No organomegaly - Back Back: Normal, Nontender - Extremities General upper extremity: Normal inspection, Nontender, Normal color, Normal ROM, Normal temperature General lower extremity: Normal inspection, Nontender, Normal color, Normal ROM, Normal temperature, Normal weight bearing. No: Stacie's sign - Neurological Neuro grossly intact: Yes Cognition: Normal Orientation: AAOx4 [place] Coma Scale Eye Opening: Spontaneous [place] Coma Scale Verbal: Oriented [place] Coma Scale Motor: Obeys Commands [place] Coma Scale Total: 15 Speech: Normal Motor strength normal: LUE, RUE, LLE, RLE Sensory: Normal - Psychological Associated symptoms: Flat affect - Skin Skin Temperature: Warm Skin Moisture: Dry Skin Color: Normal Course - Re-evaluation Re-evalutation: 08/11/19 21:47 [facility] is a 34[facility] with [facility] family stating that she went to herself. Patient with no acute findings on blood work or urine. [place] level is 0.2, so patient has not been compliant with her medications it seems. She is voluntary at this time and will be held for evaluation by mental health. Otherwise medically stable. - Vital Signs Vital signs: Temp Pulse Resp BP Pulse Ox 98.1 F 85 16 101/60 98 08/12/19 00:49 08/12/19 00:49 08/12/19 00:49 08/12/19 00:49 08/12/19 00:49 - Laboratory Result Diagrams: 08/11/19 18:54 08/11/19 18:54 Laboratory results interpreted by me: 08/11/19 08/11/19 08/11/19 18:31 18:54 18:54 WBC 14.8 H Hgb 11.9 L RDW 14.2 H Absolute Neuts (auto) 9.0 H Absolute Eos (auto) 0.8 H Glucose 114 H AST 37 H Urine Blood SMALL H Salicylates < 1.0 L Acetaminophen < 10 L [place] 08/11/19 18:54 WBC Hgb RDW Absolute Neuts (auto) Absolute Eos (auto) Glucose AST Urine Blood Salicylates Acetaminophen [place] 0.2 L Discharge - Discharge Clinical Impression: Suicidal ideation Condition: Stable Disposition: OTHER Referrals: EDWAR BOONE PA-C [Primary Care Provider] - Follow up as needed I personally performed the services described in the documentation, reviewed and edited the documentation which was dictated to the scribe in my presence, and it accurately records my words and actions.
[2019-08-12] MEDS ORDERED: LITHIUM CARBONATE 300 MG CAPSULE PO ONE (01:30)
[2019-08-12] MEDS ORDERED: PROPRANOLOL HCL 10 MG TABLET PO ONE (01:30)
[2019-08-12] MEDS ORDERED: CARIPRAZINE HCL 6 MG PO SCH (10:00)
[2019-08-12] MEDS ORDERED: BENZTROPINE MESYLATE 1 MG TABLET PO SCH (10:00)
[2019-08-12] MEDS ORDERED: PROPRANOLOL HCL 10 MG TABLET PO SCH (10:00)
--- NOTE | 2019-08-12 13:57 | PSYCHOLOGICAL NOTE ---
Psych Note - Psych Note Date seen by psych provider: 08/12/19 Time seen by psych provider: 07:50 Psych Note: Reason for consult: SI Patient is a 34 year old female who presents to ED via POV due to suicidal ideation. Patient has a history at this ED with arguing with sister and endorsing suicidal ideation. Patient stated she got into a big, big fight with her younger sister because shes trying to control my life. Patient states she is in a relationship with a boy named Luis Enrique who was recently feeling suicidal and was sent to the psych goins. Patient was trying to get her sister to agree to hanging out with boyfriend but sister used the situation to make me see hes no good for me. Patient became emotional as she described how her behavior needs to change because of the example she is setting for her nieces. Patient wants to be a good role model for them. Patient denies suicidal and homicidal ideations. Patient stated she does not want to . Clinician spent time with patient to use the coping skills she learns at [facility] to use words to collaborate with those who are trying to help and not use suicidal ideation when she is overwhelmed. Patient is alert and oriented to person, place, time and circumstance. Mood is normal with congruent affect as evidenced by smiling, laughing, and engaging with clinician. Patient was tearful when describing wanting to be a good role model for her nieces. Patient denies current suicidal and homicidal ideation. Patient reports auditory and visual hallucinations. Delusions are absent and behavior is congruent with an intact reality based presentation (i.e. organized and linear thought processes). There is no observed behavior that suggests patient is responding to internal stimuli. Eye contact is good. Conversational speech is within normal rate, tone, and prosody. Intellectual ability appears to be within average range. Attention and concentration are good. Insight, judgment, and impulse control are poor. DSM Diagnosis: Per history, Autism Spectrum Disorder Medication recommendations per [facility] contracted psychiatrist Dr. Luana HENDRIX is as follows: None Impression/Plan: Patient is cleared from acute psychiatric services. Patient does not meet IVC criteria per [place] GS 122C. Patient is linked with [facility] for medication management and mental health services. Patient receives PSR through [facility]. Patient has a history of characteristics of Autism Spectrum Disorder. With this patient, her suicidal ideation endorsement generally coincides with an argument with sister, and is generally how she expresses emotional distress. Patient has an appointment with [facility] on 08/17/2019 for medication management and mental health services. [facility] Mckenna was consulted on the care and management of this patient; attending physician is in agreement with recommendations and disposition.
--- NOTE | 2019-08-12 14:18 | ER Document Report ---
Doctor's Note Notes: 08/12/19 14:17 Evaluated patient. Patient currently has no SI or HI. Patient without complaints. Vitals stable. Lungs clear to auscultation bilaterally. Regular rate and rhythm. Per psych recommendations, mobile crisis will be here soon to take patients patient is safe for discharge medications at [facility] and [facility].
[2019-08-12 14:33] VITALS: BP 117/68
[2019-08-12] MEDS ORDERED: LITHIUM CARBONATE 300 MG CAPSULE PO SCH (22:00)
[2019-08-12] MEDS ORDERED: MONTELUKAST SODIUM 10 MG TABLET PO SCH (22:00)
== END 2019-08-12 14:34 | disposition home or self-care (01) ==
LOC: ER 17:58
DX: R45.851 Suicidal ideations (principal); E78.00 Pure hypercholesterolemia, unspecified; Z90.49 Acquired absence of other specified parts of digestive tract; Z88.0 Allergy status to penicillin; Z98.51 Tubal ligation status
CPT/HCPCS: 93005; 36415; 80307 ×4; 80178; 84703; 85025; 80053; 81001; 93010; A9270 ×3; 99285; J3490

== ENCOUNTER 2019-10-06 09:21 | Inpatient (IN) | payer MEDICARE, MEDICAID ==
[2019-10-06] MEDS ORDERED: KETOROLAC TROMETHAMINE INJ/PF 30 MG/1 ML SDV IV ONE (10:07)
[2019-10-06] MEDS ORDERED: NORMAL SALINE 1000 ML 1,000 ML IV ONE ×2 (10:07→17:30)
--- NOTE | 2019-10-06 10:10 | ER Document Report ---
ED Medical Screen (RME) - General Chief Complaint: Flank Pain Stated Complaint: CHILLS/HOT FLASHES/ RIGHT BACK PAIN Time Seen by Provider: 10/06/19 10:04 Primary Care Provider: EDWAR BOONE PA-C [Primary Care Provider] - Follow up as needed Notes: Patient is a 34-year-old female who presents to the emergency department with a chief complaint of right flank pain. Her symptoms started yesterday. She states that it is sharp pain. Denies any problems urinating. Exam: Right CVA tenderness. I have greeted and performed a rapid initial assessment of this patient. A comprehensive ED assessment and evaluation of the patient, analysis of test results and completion of medical decision making process will be conducted by an additional ED providers. TRAVEL OUTSIDE OF THE [place] IN LAST 30 DAYS: No - Related Data Allergies/Adverse Reactions: iodine Allergy (Verified 10/06/19 10:00) Hives Penicillins Allergy (Verified 10/06/19 10:00) Past Medical History - Social History Chew tobacco use (# tins/day): No Frequency of alcohol use: Occasional Drug Abuse: Marijuana - Past Medical History Cardiac Medical History: Reports: Hx Hypercholesterolemia Renal/ Medical History: Denies: Hx Peritoneal Dialysis Psychiatric Medical History: Reports: Hx Bipolar Disorder, Hx Depression Past Surgical History: Reports: Hx Breast Surgery, Hx Cholecystectomy, Hx Tubal Ligation Physical Exam - Vital signs Vitals: Temp Pulse Resp BP Pulse Ox 97.4 F 105 H 24 H 100/65 100 10/06/19 09:28 10/06/19 09:28 10/06/19 09:28 10/06/19 09:28 10/06/19 09:28 Course - Vital Signs Vital signs: Temp Pulse Resp BP Pulse Ox 97.4 F 105 H 24 H 100/65 100 10/06/19 09:28 10/06/19 09:28 10/06/19 09:28 10/06/19 09:28 10/06/19 09:28 Doctor's Discharge - Discharge Referrals: EDWAR BOONE PA-C [Primary Care Provider] - Follow up as needed
[2019-10-06 11:06] LABS: ABSOLUTE LYMPHOCYTES (AUTO) 1.3 10^3/uL (0.5-4.7); ABSOLUTE MONOCYTES (AUTO) 1.1 10^3/uL (0.1-1.4); ABSOLUTE NEUT (AUTO) 15.3 10^3/uL (1.7-8.2); BASOPHILS % (AUTO) 0.2 % (0-2); HEMATOCRIT 35.6 % (36.0-47.0); HEMOGLOBIN 11.6 g/dL (12.0-15.5); LYMPHOCYTES % (AUTO) 7.1 % (13-45); MEAN CORPUSCULAR HEMOGLOBIN 26.7 pg (27.0-33.4); MEAN CORPUSCULAR HGB CONC 32.5 g/dL (32.0-36.0); MEAN CORPUSCULAR VOLUME 82 fl (80-97); MONOCYTES % (AUTO) 6.3 % (3-13); PLATELET COUNT 277 10^3/uL (150-450); RED BLOOD COUNT 4.34 10^6/uL (3.72-5.28); RED CELL DISTRIBUTION WIDTH 14.8 % (11.5-14.0); SEGMENTED NEUTROPHILS % (AUTO) 86.4 % (42-78); TOTAL CELLS COUNTED % (AUTO) 100 %; WHITE BLOOD COUNT 17.7 10^3/uL (4.0-10.5)
[2019-10-06 11:10] LABS: APPEARANCE,URINE CLOUDY; BILIRUBIN,URINE NEGATIVE (NEGATIVE); GLUCOSE, URINE NEGATIVE (NEGATIVE); KETONES,URINE NEGATIVE (NEGATIVE); PROTEIN,URINE >=500 mg/dL (NEGATIVE); URINE SPECIFIC GRAVITY 1.018; UROBILINOGEN,URINE NEGATIVE mg/dL (<2.0)
[2019-10-06 11:13] LABS: COLOR,URINE DARK YELLOW
[2019-10-06 11:27] LABS: ALBUMIN 4.3 g/dL (3.5-5.0); ALKALINE PHOSPHATASE 94 U/L (38-126); ANION GAP 14 (5-19); ASPARTATE AMINO TRANSFERASE 33 U/L (14-36); BILIRUBIN,DIRECT 0.3 mg/dL (0.0-0.4); BILIRUBIN,TOTAL 1.1 mg/dL (0.2-1.3); BLOOD UREA NITROGEN 16 mg/dL (7-20); CARBON DIOXIDE 25 mmol/L (22-30); CHLORIDE 102 mmol/L (98-107); GLUCOSE 98 mg/dL (75-110); POTASSIUM 4.3 mmol/L (3.6-5.0); TOTAL PROTEIN 8.2 g/dL (6.3-8.2)
--- NOTE | 2019-10-06 11:47 | RADIOLOGY REPORT (SQ) ---
EXAM DESCRIPTION: CT ABD/PELVIS NO ORAL OR IV COMPLETED DATE/TIME: 10/06/2019 11:29 am REASON FOR STUDY: right flank pain COMPARISON: None. TECHNIQUE: CT scan of the abdomen and pelvis performed without intravenous or oral contrast. Images reviewed with lung, soft tissue, and bone windows. Reconstructed coronal and sagittal MPR images revi ewed. All images stored on PACS. All CT scanners at this facility use dose modulation, iterative reconstruction, and/or weight based d osing when appropriate to reduce radiation dose to as low as reasonably achievable (ALARA). [facility]: Dose Right [facility]: CareDose [facility]: Dose Right [facility]: Teradose 4D [facility]: Smart [employer] RADIATION DOSE: CT Rad equipment meets quality standard of care and radiation dose reduction techniq ues were employed. CTDIvol: 7.3 mGy. DLP: 393 mGy-cm.mGy. LIMITATIONS: None. FINDINGS: LOWER CHEST: Bibasilar atelectasis. NON-CONTRASTED LIVER, SPLEEN, ADRENALS: Evaluation is limited due to the absence of intravenous contr ast. The liver morphology is non cirrhotic. The spleen is normal in size. There is no abnormality of the adrenal glands. PANCREAS: No acute gross abnormality of the pancreas. GALLBLADDER: The gallbladder is either surgically absent or contracted. RIGHT KIDNEY AND URETER: Evaluation is limited due to the absence of intravenous contrast. There is no hydronephrosis, nephrolithiasis, hydroureter or ureterolithiasis. LEFT KIDNEY AND URETER: Evaluation is limited due to the absence of intravenous contrast. There is n o hydronephrosis, nephrolithiasis, hydroureter or ureterolithiasis. AORTA AND RETROPERITONEUM: No aneurysm of the abdominal aorta. No retroperitoneal adenopathy, hemorr pema or mass. BOWEL AND PERITONEAL CAVITY: Ovoid fat density structure posterior to the ascending colon (image 46 o f series 4) with a thin hyperdense rim and surrounding inflammatory fat stranding that measures 2.4 x 1.6 cm. There is no bowel obstruction, bowel wall thickening, or pericolonic/perienteric inflammati on. There is no mesenteric adenopathy or free intraperitoneal fluid. APPENDIX: Normal. PELVIS, BLADDER, AND ABDOMINAL WALL:1.5 x 1.5 cm hypodense lesion in the left adnexum. There is no o ther abnormality of the uterus or adnexa that is apparent on CT. The urinary bladder is nondistended . BONES: No acute findings. OTHER: No other finding. IMPRESSION: 1. Ovoid fat density structure posterior to the ascending colon (image 46 of series 4) w ith a thin hyperdense rim and surrounding inflammatory fat stranding that measures 2.4 x 1.6 cm. The structure is favored to represent an epiploic appendagitis. 2. Other findings as detailed above. COMMENT: Quality ID # [id number]: Final reports with documentation of one or more dose reduction techniques (e.g., Automated exposure control, adjustment of the mA and/or kV according to patient size, use of iterative reconstruction technique) TECHNICAL DOCUMENTATION: JOB ID: [id number] [employer]- All Rights Reserved Reading location - IP/workstation name: [email or web address]
[2019-10-06] MEDS ORDERED: FENTANYL CITRATE INJ/PF 100 MCG/2 ML AMPUL IV PRN (13:40)
[2019-10-06] MEDS ORDERED: ONDANSETRON HCL INJ/PF 4 MG/2 ML SDV IV ONE (13:42)
[2019-10-06] MEDS ORDERED: METRONIDAZOLE 500 MG/NS RTU 500 MG/100 ML RTUPB IV ONE (13:43)
--- NOTE | 2019-10-06 13:49 | ER Document Report ---
ED General - General Chief Complaint: Flank Pain Stated Complaint: CHILLS/HOT FLASHES/ RIGHT BACK PAIN Time Seen by Provider: 10/06/19 10:04 Primary Care Provider: EDWAR BOONE PA-C [NO LOCAL MD] - Follow up as needed TRAVEL OUTSIDE OF THE [place] IN LAST 30 DAYS: No - HPI Notes: Ms. Duffy is a 34-year-old female with a chief complaint of right flank pain intermittently for the past 24 hours with associated anorexia and intermittent chills. Mild sense of urinary urgency. Nausea without vomiting. Denies current medications. History of bipolar disorder. Prior surgical history: Cholecystectomy and tubal ligation. Last menses 2 weeks ago normal. Allergies: Penicillin causes facial swelling. Also reports intolerance for for Vraylar and lithium - Related Data Allergies/Adverse Reactions: iodine Allergy (Verified 10/06/19 10:00) Hives Penicillins Allergy (Verified 10/06/19 10:00) Past Medical History - General Information source: Patient - Social History Smoking Status: Former Smoker Chew tobacco use (# tins/day): No Frequency of alcohol use: Occasional Drug Abuse: Marijuana Family History: Reviewed & Not Pertinent Patient has suicidal ideation: No Patient has homicidal ideation: No - Past Medical History Cardiac Medical History: Reports: Hx Hypercholesterolemia Renal/ Medical History: Denies: Hx Peritoneal Dialysis Psychiatric Medical History: Reports: Hx Bipolar Disorder, Hx Depression Past Surgical History: Reports: Hx Breast Surgery, Hx Cholecystectomy, Hx Tubal Ligation Review of Systems - Review of Systems Notes: Constitutional: Negative for fever. HENT: Negative for sore throat. Eyes: Negative for visual changes. Cardiovascular: Negative for chest pain. Respiratory: Negative for shortness of breath. Gastrointestinal: As per HPI. Genitourinary: As per HPI. Musculoskeletal: As per HPI. Skin: Negative for rash. Neurological: Negative for headaches, weakness or numbness. 10 point ROS negative except as marked above and in HPI. Physical Exam - Vital signs Vitals: Temp Pulse Resp BP Pulse Ox 97.4 F 105 H 24 H 100/65 100 10/06/19 09:28 10/06/19 09:28 10/06/19 09:28 10/06/19 09:28 10/06/19 09:28 - Notes Notes: GENERAL: Well-developed well-nourished appearing anxious and uncomfortable. SKIN: Good turgor no rashes. HEAD: Normocephalic atraumatic. EYES: PERRLA. EOMI. Conjunctivae and sclerae clear. EARS: CANALS AND TMS CLEAR. NOSE: CLEAR. MOUTH: Moist mucosa. Good dentition. No stridor or edema. No drooling. NECK: Supple. No masses or thyromegaly. No adenopathy. Carotids 2+ without bruits. No JVD. BACK: Mild right CVA tenderness. CHEST: Respirations unlabored. Breath sounds clear and symmetrical. HEART: Regular rhythm. No murmur gallop or rub. ABDOMEN: Soft nontender without masses, organomegaly or rebound. Bowel sounds normally active. No bruits. GENITALIA: Deferred. EXTREMITIES: No edema. No calf tenderness. Cap refill less than 1.5 seconds. Dorsalis pedis and posterior tibial pulses 3+ and symmetrical. NEUROLOGICAL: GCS 15. Alert and oriented x3. Normal gait. Fluent speech. Cranial nerves II through XII intact. Sensorimotor and cerebellar normal. Normal tone. PSYCHIATRIC: Flat and somewhat anxious affect. Course - Re-evaluation Re-evalutation: 10/06/19 15:16 Findings consistent with sepsis due to acute pyelonephritis. Patient has remained hemodynamically stable but she has an elevated white count in excess of 17,000 and lactate level was 2.4. Blood cultures drawn. History of severe allergy to penicillin. Patient received Cipro and Flagyl. She will be admitted by Dr. Manley. - Vital Signs Vital signs: Temp Pulse Resp BP Pulse Ox 98.1 F 100 14 102/65 99 10/06/19 13:15 10/06/19 13:15 10/06/19 13:15 10/06/19 13:15 10/06/19 13:15 - Laboratory Result Diagrams: 10/06/19 10:15 10/06/19 10:15 Laboratory results interpreted by me: 10/06/19 10/06/19 10/06/19 10:15 10:15 13:47 WBC 17.7 H Hgb 11.6 L Hct 35.6 L MCH 26.7 L RDW 14.8 H Lymph % (Auto) 7.1 L Absolute Neuts (auto) 15.3 H Seg Neutrophils % 86.4 H Lactic Acid 2.4 H Urine Protein >=500 H Urine Blood MODERATE H Urine Nitrite (Reflex) POSITIVE H Leukocyte Esterase Rfl LARGE H Urine Ascorbic Acid 20 H Discharge - Discharge Clinical Impression: Acute pyelonephritis, Appendicitis epiploica Sepsis Qualifiers: Sepsis type: sepsis due to unspecified organism Sepsis acute organ dysfunction status: without acute organ dysfunction Qualified Code(s): A41.9 - Sepsis, unspecified organism Condition: Fair Disposition: ADMITTED INPATIENT Admitting Provider: Sindhu (Hospitalist) Unit Admitted: Medical Floor Referrals: EDWAR BOONE PA-C [NO LOCAL MD] - Follow up as needed
[2019-10-06] MEDS ORDERED: CIPROFLOXACIN 400 MG/D5W RTU 400 MG/200 ML RTUPB IV SCH (14:00)
[2019-10-06] MEDS ORDERED: ONDANSETRON HCL INJ/PF 4 MG/2 ML SDV IV PRN (16:22)
[2019-10-06] MEDS ORDERED: MAG HYDROX/AL HYDROX/SIMETH SUSP 30 ML UDCUP PO PRN (16:22)
[2019-10-06] MEDS ORDERED: TEMAZEPAM 7.5 MG CAPSULE PO PRN (16:22)
--- NOTE | 2019-10-06 16:52 | PDOC H&P ---
History of Present Illness Admission Date/PCP: 10/06/19 16:12 Patient complains of: Right flank pain History of Present Illness: ZECHARIAH WILD is a 34 year old female with a history of bipolar disorder, autistic spectrum disorder, who presents to the hospital with complaints of right flank pain of acute onset starting yesterday. Pain is described as a 10/10 sharp constant pain which feels like a knife is stabbing her. Exacerbated by movement. Denies association with urination. No significant alleviating factors. Pain occasionally waxes and wanes. Denies radiation of pain. Denies prior episodes. Denies hematuria. Associated with nausea and a few episodes of vomiting as well as chills. Patient also admits to polyuria and nocturia which he states is somewhat chronic. Denies urinary urgency. Past Medical History Past Medical History: Autistic spectrum disorder, bipolar disorder Cardiac Medical History: Reports: None Psychiatric Medical History: Reports: Bipolar Disorder Past Surgical History Past Surgical History: Reports: Cholecystectomy, Tubal Ligation Social History Information Source: Patient Smoking Status: Never Smoker Electronic Cigarette use?: Yes Frequency of Alcohol Use: Rare Hx Recreational Drug Use: No Drugs: Marijuana - Mother smoked before but not recently - Advance Directive Resuscitation Status: Full Code Family History Family History: Hypertension Parental Family History Reviewed: Yes Children Family History Reviewed: NA Sibling(s) Family History Reviewed.: NA Medication/Allergy Allergies/Adverse Reactions: iodine Allergy (Verified 10/06/19 10:00) Hives Penicillins Allergy (Verified 10/06/19 10:00) Review of Systems Constitutional: PRESENT: chills. ABSENT: anorexia, fever(s) Eyes: ABSENT: visual disturbances Nose, Mouth, and Throat: ABSENT: headache(s) Cardiovascular: ABSENT: chest pain Respiratory: ABSENT: cough, dyspnea Gastrointestinal: PRESENT: nausea, vomiting. ABSENT: abdominal pain, constipation, diarrhea Genitourinary: PRESENT: nocturia. ABSENT: dysuria, hematuria Musculoskeletal: PRESENT: back pain Integumentary: PRESENT: diaphoresis Neurological: ABSENT: confusion Psychiatric: PRESENT: anxiety Endocrine: PRESENT: polyuria Physical Exam Vital Signs: Temp Pulse Resp BP Pulse Ox 98.1 F 100 14 102/65 99 10/06/19 13:15 10/06/19 13:15 10/06/19 13:15 10/06/19 13:15 10/06/19 13:15 Intake & Output 10/05/19 10/06/19 10/07/19 06:59 06:59 06:59 Intake Total 1100 Balance 1100 Weight 70.8 kg General appearance: PRESENT: no acute distress, cooperative Head exam: PRESENT: atraumatic, normocephalic Eye exam: PRESENT: EOMI Neck exam: ABSENT: JVD Respiratory exam: PRESENT: clear to auscultation sandie, symmetrical, unlabored. ABSENT: tachypnea, wheezes Cardiovascular exam: PRESENT: +S1, +S2, tachycardia. ABSENT: irregular rhythm GI/Abdominal exam: PRESENT: normal bowel sounds, soft, other - Right CVA/flank tenderness. ABSENT: distended, firm, guarding, rebound, rigid, tenderness Extremities exam: ABSENT: pedal edema Neurological exam: PRESENT: alert, awake, oriented to person, oriented to place, oriented to time Psychiatric exam: PRESENT: anxious. ABSENT: agitated Focused psych exam: ABSENT: catatonic, pressured speech Results Laboratory Results: 10/06/19 10:15 10/06/19 10:15 10/06/19 10/06/19 10/06/19 10:15 10:15 10:15 WBC 17.7 H RBC 4.34 Hgb 11.6 L Hct 35.6 L MCV 82 MCH 26.7 L MCHC 32.5 RDW 14.8 H Plt Count 277 Seg Neutrophils % 86.4 H Sodium 141.4 Potassium 4.3 Chloride 102 Carbon Dioxide 25 Anion Gap 14 BUN 16 Creatinine 0.90 Est GFR ( Amer) > 60 Glucose 98 Lactic Acid Calcium 10.0 Total Bilirubin 1.1 AST 33 Alkaline Phosphatase 94 Total Protein 8.2 Albumin 4.3 Serum HCG, Qual Urine Color DARK YELLOW Urine Appearance CLOUDY Urine pH 5.0 Ur Specific [place] 1.018 Urine Protein >=500 H Urine Glucose (UA) NEGATIVE Urine Ketones NEGATIVE Urine Blood MODERATE H Urine RBC (Auto) 54 10/06/19 10/06/19 10:15 13:47 WBC RBC Hgb Hct MCV MCH MCHC RDW Plt Count Seg Neutrophils % Sodium Potassium Chloride Carbon Dioxide Anion Gap BUN Creatinine Est GFR ( Amer) Glucose Lactic Acid 2.4 H Calcium Total Bilirubin AST Alkaline Phosphatase Total Protein Albumin Serum HCG, Qual NEGATIVE Urine Color Urine Appearance Urine pH Ur Specific [place] Urine Protein Urine Glucose (UA) Urine Ketones Urine Blood Urine RBC (Auto) Impressions: Abdomen/Pelvis CT 10/06/19 10:09 IMPRESSION: 1. Ovoid fat density structure posterior to the ascending colon (image 46 of series 4) with a thin hyperdense rim and surrounding inflammatory fat stranding that measures 2.4 x 1.6 cm. The structure is favored to represent an epiploic appendagitis. 2. Other findings as detailed above. Assessment and Plan - Diagnosis (1) Pyelonephritis Is this a current diagnosis for this admission?: Yes Plan: Possible cause of pain. Urinalysis positive for leukocyte esterase, nitrite and blood, right CVA tenderness, history of polyuria though more chronic, and systemic symptoms. Check urine culture Follow-up blood culture I will empirically treat for pyelonephritis with ciprofloxacin No evidence of nephrolithiasis noted on CT without contrast (2) Right flank pain Is this a current diagnosis for this admission?: Yes Plan: Likely etiology is pyelonephritis and/or epiploic appendagitis Abdominal CT image and report reviewed by me showing no evidence of nephrolithiasis but shows epiploic appendagitis of the ascending colon Urine hCG negative Manage conditions as in problem 1 and 3 (3) Epiploic appendagitis Is this a current diagnosis for this admission?: Yes Plan: Involving the right ascending bowel appendage however CT shows no evidence of actual bowel wall inflammation/thickening or diverticulitis. Will manage conservatively at this time with anti-inflammatories Toradol and control of nausea/vomiting with Zofran If no improvement in pain and nausea with conservative management over the next day or two, will then consult surgery for appendage resection. (4) Atelectasis of both lungs Is this a current diagnosis for this admission?: Yes Plan: Incentive spirometry - Time Time Spent with patient: 35 or more minutes
[2019-10-06] MEDS ORDERED: NORMAL SALINE 1000 ML 500 ML IV ONE (18:00)
[2019-10-06] MEDS: ENOXAPARIN SODIUM INJ 40 MG/0.4 ML DISP.SYRIN SUBCUT SCH (18:11)
[2019-10-06] MEDS ORDERED: LORAZEPAM 1 MG TABLET PO ONE (18:30)
[2019-10-06] MEDS: KETOROLAC TROMETHAMINE INJ/PF 30 MG/1 ML SDV IV PRN (20:13)
[2019-10-06] MEDS: PROPRANOLOL HCL 10 MG TABLET PO SCH (21:00)
[2019-10-06] MEDS: LURASIDONE HCL 40 MG TABLET PO SCH (21:38)
[2019-10-06] MEDS: CIPROFLOXACIN 400 MG/D5W RTU 400 MG/200 ML RTUPB IV SCH (21:39)
[2019-10-06] MEDS: NORMAL SALINE 1000 ML 1,000 ML IV PRN (21:39)
[2019-10-06] MEDS ORDERED: (PENDING PHARMACY ID) (Lurasidone Hcl [Latuda] 20 MG) PO SCH (22:00)
[2019-10-07] MEDS ORDERED: NORMAL SALINE 1000 ML 1,000 ML IV ONE ×2 (04:30→10:30)
[2019-10-07] MEDS: KETOROLAC TROMETHAMINE INJ/PF 30 MG/1 ML SDV IV PRN ×3 (04:31→18:05)
[2019-10-07 06:23] LABS: ABSOLUTE EOSINOPHILS # (AUTO) 0.1 10^3/uL (0.0-0.6); ABSOLUTE LYMPHOCYTES (AUTO) 0.6 10^3/uL (0.5-4.7); ABSOLUTE MONOCYTES (AUTO) 0.6 10^3/uL (0.1-1.4); ABSOLUTE NEUT (AUTO) 7.6 10^3/uL (1.7-8.2); BASOPHILS % (AUTO) 0.2 % (0-2); EOSINOPHILS % (AUTO) 0.7 % (0-6); HEMATOCRIT 27.5 % (36.0-47.0); LYMPHOCYTES % (AUTO) 6.6 % (13-45); MEAN CORPUSCULAR HEMOGLOBIN 27.3 pg (27.0-33.4); MEAN CORPUSCULAR HGB CONC 33.7 g/dL (32.0-36.0); MEAN CORPUSCULAR VOLUME 81 fl (80-97); MONOCYTES % (AUTO) 6.8 % (3-13); PLATELET COUNT 180 10^3/uL (150-450); RED BLOOD COUNT 3.39 10^6/uL (3.72-5.28); RED CELL DISTRIBUTION WIDTH 14.8 % (11.5-14.0); SEGMENTED NEUTROPHILS % (AUTO) 85.7 % (42-78); TOTAL CELLS COUNTED % (AUTO) 100 %; WHITE BLOOD COUNT 8.9 10^3/uL (4.0-10.5)
[2019-10-07 06:24] LABS: ALBUMIN 2.8 g/dL (3.5-5.0); ALKALINE PHOSPHATASE 83 U/L (38-126); ANION GAP 10 (5-19); ASPARTATE AMINO TRANSFERASE 23 U/L (14-36); BILIRUBIN,DIRECT 0.3 mg/dL (0.0-0.4); BILIRUBIN,TOTAL 0.8 mg/dL (0.2-1.3); BLOOD UREA NITROGEN 15 mg/dL (7-20); CALCIUM 7.9 mg/dL (8.4-10.2); CARBON DIOXIDE 18 mmol/L (22-30); CHLORIDE 111 mmol/L (98-107); GLUCOSE 131 mg/dL (75-110); HEMOGLOBIN 9.3 g/dL (12.0-15.5); POTASSIUM 3.5 mmol/L (3.6-5.0); TOTAL PROTEIN 5.9 g/dL (6.3-8.2)
[2019-10-07] MEDS: NORMAL SALINE 1000 ML 1,000 ML IV PRN ×3 (07:25→22:31)
[2019-10-07] MEDS: OMEGA-3 ACID ETHYL ESTERS 1 GM CAPSULE PO SCH (09:11)
[2019-10-07] MEDS: BENZTROPINE MESYLATE 1 MG TABLET PO SCH (09:11)
[2019-10-07] MEDS: MULTIVITAMIN TABLET PO SCH (09:11)
[2019-10-07] MEDS: ENOXAPARIN SODIUM INJ 40 MG/0.4 ML DISP.SYRIN SUBCUT SCH (09:12)
[2019-10-07] MEDS: CIPROFLOXACIN 400 MG/D5W RTU 400 MG/200 ML RTUPB IV SCH ×2 (09:14→22:31)
[2019-10-07] MEDS: ONDANSETRON HCL INJ/PF 4 MG/2 ML SDV IV PRN ×2 (09:58→16:55)
[2019-10-07] MEDS ORDERED: (PENDING PHARMACY ID) (Omega-3/Dha/Epa/Fish Oil [Fish Oil 1,000 Mg Softgel] 1 EACH) PO SCH (10:00)
--- NOTE | 2019-10-07 10:10 | PDOC PROGRESS REPORT ---
Subjective Progress Note for:: 10/07/19 Subjective:: Patient states she still having right flank pain about a 4/5. Denies fever. Chills still present but improved. Was able to tolerate food yesterday and today. Nausea has improved. Looks very comfortable in bed. States she takes propanolol for anxiety. Ambulated yesterday and this morning without dizziness or lightheadedness. Reason For Visit: PYELONEPHRITIS, APPENDAGITIS Physical Exam Vital Signs: Temp Pulse Resp BP Pulse Ox 97.7 F 112 H 24 H 91/54 L 99 10/07/19 07:55 10/07/19 07:55 10/07/19 07:55 10/07/19 07:55 10/07/19 07:55 Intake & Output 10/06/19 10/07/19 10/08/19 06:59 06:59 06:59 Intake Total 5300 Balance 5300 Weight 73.5 kg General appearance: PRESENT: no acute distress, cooperative Neck exam: ABSENT: JVD Respiratory exam: PRESENT: clear to auscultation sandie, symmetrical, unlabored. ABSENT: tachypnea, wheezes Cardiovascular exam: PRESENT: RRR, +S1, +S2. ABSENT: tachycardia GI/Abdominal exam: PRESENT: normal bowel sounds, soft, other - Tenderness in right flank but not in abdomen. ABSENT: distended, firm, guarding, rebound, rigid Extremities exam: ABSENT: pedal edema Musculoskeletal exam: PRESENT: ambulatory Neurological exam: PRESENT: alert, awake, oriented to person, oriented to place, oriented to time, oriented to situation Psychiatric exam: ABSENT: agitated, anxious Results Laboratory Results: 10/07/19 05:46 10/07/19 05:46 10/06/19 10/06/19 10/06/19 10:15 10:15 10:15 WBC 17.7 H RBC 4.34 Hgb 11.6 L Hct 35.6 L MCV 82 MCH 26.7 L MCHC 32.5 RDW 14.8 H Plt Count 277 Seg Neutrophils % 86.4 H Sodium 141.4 Potassium 4.3 Chloride 102 Carbon Dioxide 25 Anion Gap 14 BUN 16 Creatinine 0.90 Est GFR ( Amer) > 60 Glucose 98 Lactic Acid Calcium 10.0 Total Bilirubin 1.1 AST 33 Alkaline Phosphatase 94 Total Protein 8.2 Albumin 4.3 Serum HCG, Qual Urine Color DARK YELLOW Urine Appearance CLOUDY Urine pH 5.0 Ur Specific [place] 1.018 Urine Protein >=500 H Urine Glucose (UA) NEGATIVE Urine Ketones NEGATIVE Urine Blood MODERATE H Urine RBC (Auto) 54 10/06/19 10/06/19 10/06/19 10:15 13:47 19:24 WBC RBC Hgb Hct MCV MCH MCHC RDW Plt Count Seg Neutrophils % Sodium Potassium Chloride Carbon Dioxide Anion Gap BUN Creatinine Est GFR ( Amer) Glucose Lactic Acid 2.4 H 0.9 Calcium Total Bilirubin AST Alkaline Phosphatase Total Protein Albumin Serum HCG, Qual NEGATIVE Urine Color Urine Appearance Urine pH Ur Specific [place] Urine Protein Urine Glucose (UA) Urine Ketones Urine Blood Urine RBC (Auto) 10/07/19 10/07/19 05:46 05:46 WBC 8.9 RBC 3.39 L Hgb 9.3 L D Hct 27.5 L MCV 81 MCH 27.3 MCHC 33.7 RDW 14.8 H Plt Count 180 Seg Neutrophils % 85.7 H Sodium 139.4 Potassium 3.5 L Chloride 111 H Carbon Dioxide 18 L Anion Gap 10 BUN 15 Creatinine 0.87 Est GFR ( Amer) > 60 Glucose 131 H Lactic Acid Calcium 7.9 L Total Bilirubin 0.8 AST 23 Alkaline Phosphatase 83 Total Protein 5.9 L Albumin 2.8 L Serum HCG, Qual Urine Color Urine Appearance Urine pH Ur Specific [place] Urine Protein Urine Glucose (UA) Urine Ketones Urine Blood Urine RBC (Auto) Impressions: Abdomen/Pelvis CT 10/06/19 10:09 IMPRESSION: 1. Ovoid fat density structure posterior to the ascending colon (image 46 of series 4) with a thin hyperdense rim and surrounding inflammatory fat stranding that measures 2.4 x 1.6 cm. The structure is favored to represent an epiploic appendagitis. 2. Other findings as detailed above. Assessment and Plan - Diagnosis (1) Pyelonephritis Is this a current diagnosis for this admission?: Yes Plan: Possible cause of pain. Urinalysis positive for leukocyte esterase, nitrite and blood, right CVA tenderness, history of polyuria though more chronic, and systemic symptoms. Patient does not physically appear septic and appears very comfortable even despite soft blood pressures which may just be her baseline.. Follow-up urine culture ciprofloxacin day 2 No evidence of nephrolithiasis noted on CT without contrast (2) E coli bacteremia Is this a current diagnosis for this admission?: Yes Plan: Likely source is pyelonephritis. Appendagitis less likely etiology in this setting. Repeat blood cultures (3) Epiploic appendagitis Is this a current diagnosis for this admission?: Yes Plan: Involving the right ascending bowel appendage however CT shows no evidence of actual bowel wall inflammation/thickening or diverticulitis. Will manage conservatively at this time with NSAID Toradol and control of nausea/vomiting with Zofran Patient now tolerating diet and nausea is improved. Pain still present. At this time, no need for surgical resection but may reevaluate this if urine culture does not result will E. coli. (4) Right flank pain Is this a current diagnosis for this admission?: Yes Plan: Likely etiology is pyelonephritis and/or epiploic appendagitis Abdominal CT image and report reviewed by me showing no evidence of nephrolithiasis but shows epiploic appendagitis of the ascending colon Urine hCG negative Manage conditions as in problem 1 and 3 (5) Atelectasis of both lungs Is this a current diagnosis for this admission?: Yes Plan: Incentive spirometry (6) Bipolar I disorder with anxious distress Is this a current diagnosis for this admission?: Yes Plan: Continue home regimen of Latuda, benztropine and propanolol - Time Time Spent with patient: 15-24 minutes
[2019-10-07] MEDS: PROPRANOLOL HCL 10 MG TABLET PO SCH ×2 (10:20→22:18)
[2019-10-07] MEDS: POTASSIUM CHLORIDE 10 MEQ TABLET.ER PO SCH ×2 (13:01→22:27)
[2019-10-07] MEDS: ACETAMINOPHEN 325 MG TABLET PO PRN (16:54)
[2019-10-07] MEDS: LURASIDONE HCL 40 MG TABLET PO SCH (22:27)
[2019-10-08 06:24] LABS: ABSOLUTE EOSINOPHILS # (AUTO) 0.1 10^3/uL (0.0-0.6); ABSOLUTE LYMPHOCYTES (AUTO) 0.6 10^3/uL (0.5-4.7); ABSOLUTE MONOCYTES (AUTO) 0.5 10^3/uL (0.1-1.4); ABSOLUTE NEUT (AUTO) 3.7 10^3/uL (1.7-8.2); BASOPHILS % (AUTO) 0.3 % (0-2); EOSINOPHILS % (AUTO) 1.5 % (0-6); HEMATOCRIT 25.5 % (36.0-47.0); HEMOGLOBIN 8.7 g/dL (12.0-15.5); LYMPHOCYTES % (AUTO) 11.7 % (13-45); MEAN CORPUSCULAR HEMOGLOBIN 27.5 pg (27.0-33.4); MEAN CORPUSCULAR HGB CONC 33.9 g/dL (32.0-36.0); MEAN CORPUSCULAR VOLUME 81 fl (80-97); MONOCYTES % (AUTO) 9.9 % (3-13); PLATELET COUNT 171 10^3/uL (150-450); RED BLOOD COUNT 3.15 10^6/uL (3.72-5.28); RED CELL DISTRIBUTION WIDTH 14.6 % (11.5-14.0); SEGMENTED NEUTROPHILS % (AUTO) 76.6 % (42-78); TOTAL CELLS COUNTED % (AUTO) 100 %; WHITE BLOOD COUNT 4.8 10^3/uL (4.0-10.5)
[2019-10-08 06:55] LABS: ALBUMIN 2.6 g/dL (3.5-5.0); ALKALINE PHOSPHATASE 92 U/L (38-126); ANION GAP 9 (5-19); ASPARTATE AMINO TRANSFERASE 24 U/L (14-36); BILIRUBIN,DIRECT 0.4 mg/dL (0.0-0.4); BILIRUBIN,TOTAL 0.5 mg/dL (0.2-1.3); BLOOD UREA NITROGEN 10 mg/dL (7-20); CALCIUM 8.2 mg/dL (8.4-10.2); CARBON DIOXIDE 17 mmol/L (22-30); CHLORIDE 114 mmol/L (98-107); GLUCOSE 104 mg/dL (75-110); POTASSIUM 4.3 mmol/L (3.6-5.0); TOTAL PROTEIN 5.8 g/dL (6.3-8.2)
[2019-10-08] MEDS: CIPROFLOXACIN 400 MG/D5W RTU 400 MG/200 ML RTUPB IV SCH ×2 (09:47→22:02)
[2019-10-08] MEDS: PROPRANOLOL HCL 10 MG TABLET PO SCH ×2 (10:00→22:02)
[2019-10-08] MEDS: OMEGA-3 ACID ETHYL ESTERS 1 GM CAPSULE PO SCH (10:01)
[2019-10-08] MEDS: ENOXAPARIN SODIUM INJ 40 MG/0.4 ML DISP.SYRIN SUBCUT SCH (10:01)
[2019-10-08] MEDS: BENZTROPINE MESYLATE 1 MG TABLET PO SCH (10:01)
[2019-10-08] MEDS: MULTIVITAMIN TABLET PO SCH (10:01)
[2019-10-08] MEDS: PROMETHAZINE HCL INJ 25 MG/1 ML VIAL IV PRN (12:01)
--- NOTE | 2019-10-08 12:29 | PDOC PROGRESS REPORT ---
Subjective Progress Note for:: 10/08/19 Subjective:: Patient having some nausea this morning. Still having some right flank pain. However she has been able to eat all her meals and tolerate diet with help from antiemetics. I have called patient's mom to discuss case. Reason For Visit: PYELONEPHRITIS, APPENDAGITIS Physical Exam Vital Signs: Temp Pulse Resp BP Pulse Ox 97.9 F 98 17 103/57 L 100 10/08/19 07:38 10/08/19 07:38 10/08/19 07:38 10/08/19 07:38 10/08/19 07:38 Intake & Output 10/07/19 10/08/19 10/09/19 06:59 06:59 06:59 Intake Total 5300 4356 1200 Balance 5300 4356 1200 Weight 73.5 kg 67.6 kg General appearance: PRESENT: no acute distress, cooperative Neck exam: ABSENT: JVD Respiratory exam: PRESENT: clear to auscultation sandie, symmetrical, unlabored. ABSENT: tachypnea, wheezes Cardiovascular exam: PRESENT: RRR, +S1, +S2. ABSENT: tachycardia GI/Abdominal exam: PRESENT: normal bowel sounds, soft, other - Right CVA tenderness. ABSENT: distended, firm, guarding, rebound, rigid Neurological exam: PRESENT: alert, awake, oriented to person, oriented to place, oriented to time, oriented to situation Results Laboratory Results: 10/08/19 05:52 10/08/19 05:52 10/08/19 10/08/19 05:52 05:52 WBC 4.8 RBC 3.15 L Hgb 8.7 L Hct 25.5 L MCV 81 MCH 27.5 MCHC 33.9 RDW 14.6 H Plt Count 171 Seg Neutrophils % 76.6 Sodium 140.1 Potassium 4.3 Chloride 114 H Carbon Dioxide 17 L Anion Gap 9 BUN 10 Creatinine 0.80 Est GFR ( Amer) > 60 Glucose 104 Calcium 8.2 L Total Bilirubin 0.5 AST 24 Alkaline Phosphatase 92 Total Protein 5.8 L Albumin 2.6 L 10/06/19 14:48 Blood Blood Culture (PCR) - Final Escherichia Coli 10/06/19 14:15 Blood Blood Culture (PCR) - Final Escherichia Coli 10/06/19 10:56 Clean Catch Midstream Urine Culture - Final Escherichia Coli Impressions: Abdomen/Pelvis CT 10/06/19 10:09 IMPRESSION: 1. Ovoid fat density structure posterior to the ascending colon (image 46 of series 4) with a thin hyperdense rim and surrounding inflammatory fat stranding that measures 2.4 x 1.6 cm. The structure is favored to represent an epiploic appendagitis. 2. Other findings as detailed above. Assessment and Plan - Diagnosis (1) Pyelonephritis Is this a current diagnosis for this admission?: Yes Plan: Urine culture positive for E. coli sensitive to ciprofloxacin ciprofloxacin day 3 No evidence of nephrolithiasis noted on CT without contrast I have discussed plan with patient's mother via telephone on patient's request. (2) E coli bacteremia Is this a current diagnosis for this admission?: Yes Plan: Likely source is pyelonephritis. Appendagitis less likely etiology in this setting. Repeat blood cultures negative in 24 hours Awaiting sensitivity. (3) Epiploic appendagitis Is this a current diagnosis for this admission?: Yes Plan: Involving the right ascending bowel appendage however CT shows no evidence of actual bowel wall inflammation/thickening or diverticulitis. Continue conservative management with NSAID Toradol and control of nausea/vomiting with Zofran Patient now tolerating diet and nausea is improved. Pain still present. At this time, no need for surgical resection. (4) Right flank pain Is this a current diagnosis for this admission?: Yes Plan: Likely etiology is pyelonephritis and/or epiploic appendagitis Abdominal CT image and report reviewed by me showing no evidence of nephrolithiasis but shows epiploic appendagitis of the ascending colon Urine hCG negative Manage conditions as in problem 1 and 3 (5) Atelectasis of both lungs Is this a current diagnosis for this admission?: Yes Plan: Incentive spirometry (6) Bipolar I disorder with anxious distress Is this a current diagnosis for this admission?: Yes Plan: Continue home regimen of Latuda, benztropine and propanolol - Time Time Spent with patient: Less than 15 minutes
[2019-10-08] MEDS: KETOROLAC TROMETHAMINE INJ/PF 30 MG/1 ML SDV IV PRN (15:32)
[2019-10-08] MEDS: LURASIDONE HCL 40 MG TABLET PO SCH (22:02)
[2019-10-09 04:54] LABS: HEMATOCRIT 28.9 % (36.0-47.0); HEMOGLOBIN 9.6 g/dL (12.0-15.5); MEAN CORPUSCULAR HEMOGLOBIN 26.7 pg (27.0-33.4); MEAN CORPUSCULAR HGB CONC 33.2 g/dL (32.0-36.0); MEAN CORPUSCULAR VOLUME 81 fl (80-97); PLATELET COUNT 204 10^3/uL (150-450); RED BLOOD COUNT 3.59 10^6/uL (3.72-5.28); RED CELL DISTRIBUTION WIDTH 15.1 % (11.5-14.0); WHITE BLOOD COUNT 4.3 10^3/uL (4.0-10.5)
[2019-10-09 05:14] LABS: ANION GAP 11 (5-19); BLOOD UREA NITROGEN 8 mg/dL (7-20); CALCIUM 8.8 mg/dL (8.4-10.2); CARBON DIOXIDE 18 mmol/L (22-30); CHLORIDE 110 mmol/L (98-107); GLUCOSE 91 mg/dL (75-110); POTASSIUM 4.2 mmol/L (3.6-5.0)
[2019-10-09] MEDS: ACETAMINOPHEN 325 MG TABLET PO PRN (08:00)
[2019-10-09] MEDS: BENZTROPINE MESYLATE 1 MG TABLET PO SCH (09:09)
[2019-10-09] MEDS: MULTIVITAMIN TABLET PO SCH (09:09)
[2019-10-09] MEDS: OMEGA-3 ACID ETHYL ESTERS 1 GM CAPSULE PO SCH (09:09)
[2019-10-09] MEDS: ENOXAPARIN SODIUM INJ 40 MG/0.4 ML DISP.SYRIN SUBCUT SCH (09:10)
[2019-10-09] MEDS: CIPROFLOXACIN 400 MG/D5W RTU 400 MG/200 ML RTUPB IV SCH (09:10)
[2019-10-09] MEDS: PROPRANOLOL HCL 10 MG TABLET PO SCH (09:17)
[2019-10-09 09:20] VITALS: BP 105/68
[2019-10-09] MEDS: PROMETHAZINE HCL INJ 25 MG/1 ML VIAL IV PRN (11:03)
--- NOTE | 2019-10-09 11:15 | PDOC DISCHARGE SUMMARY ---
Impression - Admit/DC Date/PCP Admission Date/Primary Care Provider: 10/06/19 16:12 Discharge Date: 10/09/19 - Discharge Diagnosis (1) Pyelonephritis Is this a current diagnosis for this admission?: Yes (2) E coli bacteremia Is this a current diagnosis for this admission?: Yes (3) Epiploic appendagitis Is this a current diagnosis for this admission?: Yes (4) Right flank pain Is this a current diagnosis for this admission?: Yes (5) Atelectasis of both lungs Is this a current diagnosis for this admission?: Yes (6) Bipolar I disorder with anxious distress Is this a current diagnosis for this admission?: Yes - Assessment Summary: Patient on presentation was noted to be very uncomfortable complains of right CVA pain. No nausea vomiting. Vital signs revealed significant tachycardia secondary to dehydration and pain. Patient had soft blood pressures but did not appear to be septic. Patient's sofa score did not meet criteria for sepsis. Patient underwent abdominal CT which showed evidence of right epiploic appendagitis, no evidence of nephrolithiasis and a normal appendix and normal bowel wall. Urinalysis was positive for infection. Patient was admitted for treatment of acute pyelonephritis and was started on ciprofloxacin with antiemetics to help control nausea and vomiting. Patient remained hemodynamically stable. Patient's right epiploic appendagitis was managed with NSAIDs as patient was tolerating diet and there was no need for surgical intervention. Blood cultures obtained prior to initiation of antibiotics grew E. coli which was also noted in the urine both sensitive to ciprofloxacin. Repeat blood cultures have been negative for 48 hours now. Patient symptoms have significantly improved and patient is stable for discharge at this time. Patient is to continue ciprofloxacin for 8 more days to complete a 10-day course of therapy for treatment of acute pyelonephritis and to continue NSAIDs as needed for pain from pyelonephritis as well as from the epiploic appendagitis. - Additional Information Resuscitation Status: Full Code Discharge Diet: Regular Discharge Activity: Activity As Tolerated Referrals: EDWAR BOONE PA-C [NO LOCAL MD] - Follow up as needed Prescriptions: Ciprofloxacin HCl [Cipro] 500 mg PO Q12 #15 tablet Ibuprofen [Motrin 400 mg Tablet] 400 mg PO TIDP PRN #10 tablet PRN Reason: Ondansetron HCl [Zofran 4 mg Tablet] 1 - 2 tab PO Q4H PRN #10 tablet PRN Reason: Home Medications: Benztropine Mesylate [Cogentin 1 mg Tablet] 1 mg PO DAILY 10/06/19 Lurasidone HCl [Latuda] 20 mg PO QHS 10/06/19 Multivitamin [Daily Multiple Vitamin] 1 each PO DAILY 10/06/19 [place]-3/Dha/Epa/Fish Oil [Fish Oil 1,000 mg Softgel] 1 each PO DAILY 10/06/19 Propranolol HCl [Inderal 10 mg Tablet] 10 mg PO Q12 10/06/19 Acetaminophen [Tylenol 325 mg Tablet] 650 mg PO Q4HP PRN tablet 10/09/19 Ciprofloxacin HCl [Cipro] 500 mg PO Q12 #15 tablet 10/09/19 Ibuprofen [Motrin 400 mg Tablet] 400 mg PO TIDP PRN #10 tablet 10/09/19 Ondansetron HCl [Zofran 4 mg Tablet] 1 - 2 tab PO Q4H PRN #10 tablet 10/09/19 History of Present Illiness History of Present Illness: ZECHARIAH WILD is a 34 year old female with a history of bipolar disorder, autistic spectrum disorder, who presents to the hospital with complaints of right flank pain of acute onset starting yesterday. Pain is described as a 10/10 sharp constant pain which feels like a knife is stabbing her. Exacerbated by movement. Denies association with urination. No significant alleviating factors. Pain occasionally waxes and wanes. Denies radiation of pain. Denies prior episodes. Denies hematuria. Associated with nausea and a few episodes of vomiting as well as chills. Patient also admits to polyuria and nocturia which he states is somewhat chronic. Denies urinary urgency. Physical Exam Vital Signs: Temp Pulse Resp BP Pulse Ox 98.1 F 90 18 105/68 98 10/09/19 07:54 10/09/19 07:54 10/09/19 07:54 10/09/19 09:00 10/09/19 07:54 Intake & Output 10/08/19 10/09/19 10/10/19 06:59 06:59 06:59 Intake Total 4356 3244 200 Balance 4356 3244 200 Weight 67.6 kg 77.8 kg General appearance: PRESENT: no acute distress, cooperative GI/Abdominal exam: PRESENT: normal bowel sounds, soft, other - Mild CVA tenderness with improved significantly. ABSENT: rebound, rigid, tenderness Neurological exam: PRESENT: alert, awake Results Laboratory Results: WBC 4.3 10^3/uL (4.0-10.5) 10/09/19 04:34 RBC 3.59 10^6/uL (3.72-5.28) L 10/09/19 04:34 Hgb 9.6 g/dL (12.0-15.5) L 10/09/19 04:34 Hct 28.9 % (36.0-47.0) L 10/09/19 04:34 MCV 81 fl (80-97) 10/09/19 04:34 MCH 26.7 pg (27.0-33.4) L 10/09/19 04:34 MCHC 33.2 g/dL (32.0-36.0) 10/09/19 04:34 RDW 15.1 % (11.5-14.0) H 10/09/19 04:34 Plt Count 204 10^3/uL (150-450) 10/09/19 04:34 Lymph % (Auto) 11.7 % (13-45) L 10/08/19 05:52 Person % (Auto) 9.9 % (3-13) 10/08/19 05:52 Eos % (Auto) 1.5 % (0-6) 10/08/19 05:52 Baso % (Auto) 0.3 % (0-2) 10/08/19 05:52 Absolute Neuts (auto) 3.7 10^3/uL (1.7-8.2) 10/08/19 05:52 Absolute Lymphs (auto) 0.6 10^3/uL (0.5-4.7) 10/08/19 05:52 Absolute Monos (auto) 0.5 10^3/uL (0.1-1.4) 10/08/19 05:52 Absolute Eos (auto) 0.1 10^3/uL (0.0-0.6) 10/08/19 05:52 Absolute Basos (auto) 0.0 10^3/uL (0.0-0.2) 10/08/19 05:52 Seg Neutrophils % 76.6 % (42-78) 10/08/19 05:52 Sodium 139.1 mmol/L (137-145) 10/09/19 04:34 Potassium 4.2 mmol/L (3.6-5.0) 10/09/19 04:34 Chloride 110 mmol/L (98-107) H 10/09/19 04:34 Carbon Dioxide 18 mmol/L (22-30) L 10/09/19 04:34 Anion Gap 11 (5-19) 10/09/19 04:34 BUN 8 mg/dL (7-20) 10/09/19 04:34 Creatinine 0.77 mg/dL (0.52-1.25) 10/09/19 04:34 Est GFR ( Amer) > 60 (>60) 10/09/19 04:34 Est GFR (MDRD) Non-Af > 60 (>60) 10/09/19 04:34 Glucose 91 mg/dL (75-110) 10/09/19 04:34 Lactic Acid 0.9 mmol/L (0.7-2.1) 10/06/19 19:24 Calcium 8.8 mg/dL (8.4-10.2) 10/09/19 04:34 Total Bilirubin 0.5 mg/dL (0.2-1.3) 10/08/19 05:52 Direct Bilirubin 0.4 mg/dL (0.0-0.4) 10/08/19 05:52 Neonat Total Bilirubin Not Reportable 10/08/19 05:52 Neonat Direct Bilirubin Not Reportable 10/08/19 05:52 Neonat Indirect Bili Not Reportable 10/08/19 05:52 AST 24 U/L (14-36) 10/08/19 05:52 ALT 16 U/L (<35) 10/08/19 05:52 Alkaline Phosphatase 92 U/L (38-126) 10/08/19 05:52 Total Protein 5.8 g/dL (6.3-8.2) L 10/08/19 05:52 Albumin 2.6 g/dL (3.5-5.0) L 10/08/19 05:52 Serum HCG, Qual NEGATIVE (NEGATIVE) 10/06/19 10:15 Urine Color DARK YELLOW 10/06/19 10:15 Urine Appearance CLOUDY 10/06/19 10:15 Urine pH 5.0 (5.0-9.0) 10/06/19 10:15 Ur Specific [place] 1.018 10/06/19 10:15 Urine Protein >=500 mg/dL (NEGATIVE) H 10/06/19 10:15 Urine Glucose (UA) NEGATIVE mg/dL (NEGATIVE) 10/06/19 10:15 Urine Ketones NEGATIVE mg/dL (NEGATIVE) 10/06/19 10:15 Urine Blood MODERATE (NEGATIVE) H 10/06/19 10:15 Urine Nitrite (Reflex) POSITIVE (NEGATIVE) H 10/06/19 10:15 Urine Bilirubin NEGATIVE (NEGATIVE) 10/06/19 10:15 Urine Urobilinogen NEGATIVE mg/dL (<2.0) 10/06/19 10:15 Leukocyte Esterase Rfl LARGE (NEGATIVE) H 10/06/19 10:15 Urine RBC (Auto) 54 /HPF 10/06/19 10:15 Urine Bacteria (Auto) 1+ /HPF 10/06/19 10:15 Urine WBC (Reflex) > 182 /HPF 10/06/19 10:15 Urine WBC Clumps MANY /HPF 10/06/19 10:15 Squamous Epi Cells Auto 7 /HPF 10/06/19 10:15 U Non-Squamous Epis Auto 3 /HPF 10/06/19 10:15 Urine Mucus (Auto) MANY /LPF 10/06/19 10:15 Urine Ascorbic Acid 20 (NEGATIVE) H 10/06/19 10:15 Urine HCG, Qual NEGATIVE (NEGATIVE) 10/06/19 10:56 Impressions: Abdomen/Pelvis CT 10/06/19 10:09 IMPRESSION: 1. Ovoid fat density structure posterior to the ascending colon (image 46 of series 4) with a thin hyperdense rim and surrounding inflammatory fat stranding that measures 2.4 x 1.6 cm. The structure is favored to represent an epiploic appendagitis. 2. Other findings as detailed above. Plan Time Spent: Less than 30 Minutes Stroke Is this a Stroke Patient?: No Acute Heart Failure - Is this a Heart Failure Patient?: No
== END 2019-10-09 12:21 | disposition home or self-care (01) | DRG 690 ==
LOC: ER 09:21 → EH 16:12 → 5 18:21
PROVIDERS: ADMIT Internal Medicine; ATTEND Internal Medicine
DX: N10 Acute pyelonephritis (principal); R78.81 Bacteremia; J98.11 Atelectasis; K63.89 Other specified diseases of intestine; B96.20 Unspecified Escherichia coli [E. coli] as the cause of diseases classified elsewhere; E78.00 Pure hypercholesterolemia, unspecified; R63.0 Anorexia; F41.9 Anxiety disorder, unspecified; F31.9 Bipolar disorder, unspecified; Z88.0 Allergy status to penicillin
CPT/HCPCS: 36415; 74176; 80048; 80053; 81001; 81025; 83605; 84703; 85025; 85027; 87040; 87077; 87086; 87088; 87150; 87186; 94799; 96361; 96365; 96367; 96375; 99285; J0744; J1650; J1885; J2405; J2550; J3010; J3490; J7030

== ENCOUNTER 2020-01-10 12:20 | Emergency (ER) | payer MEDICARE, MEDICAID ==
[2020-01-10 12:27] VITALS: BP 108/72
--- NOTE | 2020-01-10 12:56 | ER Document Report ---
HPI - HPI Time Seen by Provider: 01/10/20 12:23 Onset: Other - 4 days Onset/Duration: Persistent Quality of pain: Achy Pain Level: 5 Context: Patient presents complaining of chills, fatigue dysuria frequency and bilateral flank tenderness. Patient reports a history of previous sepsis due to UTI was concerned about this today. Patient without any known fever. Associated Symptoms: Other - Dysuria, flank pain. denies: Fever, Nausea, Vomiting Exacerbated by: Denies Relieved by: Denies Similar symptoms previously: Yes Recently seen / treated by doctor: No - ROS ROS below otherwise negative: Yes Systems Reviewed and Negative: Yes All other systems reviewed and negative - CONSTITUTIONAL Constitutional: REPORTS: Chills. DENIES: Fever - CARDIOVASCULAR Cardiovascular: DENIES: Chest pain - RESPIRATORY Respiratory: DENIES: Trouble Breathing, Coughing - GASTROINTESTINAL Gastrointestinal: DENIES: Nausea, Patient vomiting, Diarrhea - URINARY Urinary: REPORTS: Dysuria, Urgency, Frequency - REPRODUCTIVE Reproductive: DENIES: : - MUSCULOSKELETAL Musculoskeletal: REPORTS: Back Pain - DERM Skin Color: Normal Skin Problems: None Past Medical History - General Information source: Patient, Relative - Social History Smoking Status: Never Smoker Frequency of alcohol use: Occasional Drug Abuse: None Lives with: Family Family History: Hypertension Patient has suicidal ideation: No Patient has homicidal ideation: No - Medical History Medical History: Other - autism spectrum - Past Medical History Cardiac Medical History: Reports: Hx Hypercholesterolemia Renal/ Medical History: Denies: Hx Peritoneal Dialysis Psychiatric Medical History: Reports: Hx Bipolar Disorder, Hx Depression Past Surgical History: Reports: Hx Breast Surgery, Hx Cholecystectomy, Hx Tubal Ligation Vertical Provider Document - CONSTITUTIONAL Agree With Documented VS: Yes Exam Limitations: No Limitations General Appearance: WD/WN, No Apparent Distress - INFECTION CONTROL TRAVEL OUTSIDE OF THE [place] IN LAST 30 DAYS: No - HEENT HEENT: Atraumatic, Normocephalic - NECK Neck: Normal Inspection, Supple. negative: Lymphadenopathy-Left, Lymphade nopathy-Right - RESPIRATORY Respiratory: Breath Sounds Normal, No Respiratory Distress - CARDIOVASCULAR Cardiovascular: Regular Rate, Regular Rhythm, No Murmur. negative: Tachycardia - GI/ABDOMEN Gastrointestinal: Abdomen Soft - BACK Back: CVA Tenderness-Left - MUSCULOSKELETAL/EXTREMETIES Musculoskeletal/Extremeties: LEN ORYAL - NEURO Level of Consciousness: Awake, Alert, Appropriate Motor/Sensory: No Motor Deficit - DERM Integumentary: Warm, Dry, No Rash Course - Re-evaluation Re-evalutation: 01/10/20 15:40 Patient with UTI with left flank tenderness worrisome for possible early pyelonephritis, no leukocytosis or fever. Patient's pain symptoms manageable at this time. Patient without any nausea or vomiting. Patient with stable vital signs. - Vital Signs Vital signs: Temp Pulse Resp BP Pulse Ox 97.8 F 80 16 108/72 98 01/10/20 12:24 01/10/20 12:24 01/10/20 12:24 01/10/20 12:24 01/10/20 12:24 - Laboratory Result Diagrams: 01/10/20 14:51 01/10/20 14:51 Laboratory results interpreted by me: 01/10/20 15:40 Labs- Entire Visit 01/10/20 01/10/20 01/10/20 12:28 14:51 14:51 WBC 9.8 RBC 4.47 Hgb 11.9 L Hct 35.2 L MCV 79 L MCH 26.7 L MCHC 33.9 RDW 15.2 H Plt Count 376 Lymph % (Auto) 29.1 [place] % (Auto) 7.0 Eos % (Auto) 5.1 Baso % (Auto) 0.6 Absolute Neuts (auto) 5.7 Absolute Lymphs (auto) 2.8 Absolute Monos (auto) 0.7 Absolute Eos (auto) 0.5 Absolute Basos (auto) 0.1 Seg Neutrophils % 58.2 Sodium 139.8 Potassium 4.0 Chloride 101 Carbon Dioxide 29 Anion Gap 10 BUN 10 Creatinine 0.69 Est GFR ( Amer) > 60 Est GFR (MDRD) Non-Af > 60 Glucose 85 Calcium 10.1 Urine Color DARK YELLOW Urine Appearance CLOUDY Urine pH 5.0 Ur Specific [place] 1.023 Urine Protein 30 H Urine Glucose (UA) NEGATIVE Urine Ketones NEGATIVE Urine Blood LARGE H Urine Nitrite NEGATIVE Urine Bilirubin NEGATIVE Urine Urobilinogen NEGATIVE Ur Leukocyte Esterase TRACE H Urine WBC (Auto) 22 Urine RBC (Auto) >182 Urine Bacteria (Auto) TRACE Squamous Epi Cells Auto 17 Urine Mucus (Auto) OCC Urine Ascorbic Acid NEGATIVE Discharge - Discharge Clinical Impression: Flank pain UTI (urinary tract infection) Qualifiers: Urinary tract infection type: site unspecified Hematuria presence: with hematuria Qualified Code(s): N39.0 - Urinary tract infection, site not specified Condition: Stable Disposition: HOME, SELF-CARE Instructions: Flank Pain ([facility]), Trimethoprim-Sulfa ([facility]), Urinary Anesthetic Agent ([facility]), Urinary Tract Infection ([facility]) Additional Instructions: Return immediately for any new or worsening symptoms Followup with your primary care provider, call tomorrow to make a followup appointment Urine culture is pending, we will call if you need any different treatment Prescriptions: Sulfamethoxazole/Trimethoprim [Bactrim Ds Tablet] 1 each PO BID #20 tablet Phenazopyridine HCl [Pyridium 200 mg Tablet] 200 mg PO TID #15 tablet Referrals: EDWAR BOONE PA-C [Primary Care Provider] - Follow up tomorrow
[2020-01-10 13:00] LABS: APPEARANCE,URINE CLOUDY; BILIRUBIN,URINE NEGATIVE (NEGATIVE); GLUCOSE, URINE NEGATIVE (NEGATIVE); KETONES,URINE NEGATIVE (NEGATIVE); LEUKOCYTE ESTERASE,URINE TRACE (NEGATIVE); NITRITE,URINE NEGATIVE (NEGATIVE); PROTEIN,URINE 30 mg/dL (NEGATIVE); URINE SPECIFIC GRAVITY 1.023; UROBILINOGEN,URINE NEGATIVE mg/dL (<2.0)
[2020-01-10 13:01] LABS: COLOR,URINE DARK YELLOW
[2020-01-10] MEDS ORDERED: SULFAMETHOXAZOLE/TRIMETHOPRIM 800-160 MG TABLET PO ONE (13:36)
[2020-01-10 14:59] LABS: ABSOLUTE BASOPHILS # (AUTO) 0.1 10^3/uL (0.0-0.2); ABSOLUTE EOSINOPHILS # (AUTO) 0.5 10^3/uL (0.0-0.6); ABSOLUTE LYMPHOCYTES (AUTO) 2.8 10^3/uL (0.5-4.7); ABSOLUTE MONOCYTES (AUTO) 0.7 10^3/uL (0.1-1.4); ABSOLUTE NEUT (AUTO) 5.7 10^3/uL (1.7-8.2); BASOPHILS % (AUTO) 0.6 % (0-2); EOSINOPHILS % (AUTO) 5.1 % (0-6); HEMATOCRIT 35.2 % (36.0-47.0); HEMOGLOBIN 11.9 g/dL (12.0-15.5); LYMPHOCYTES % (AUTO) 29.1 % (13-45); MEAN CORPUSCULAR HEMOGLOBIN 26.7 pg (27.0-33.4); MEAN CORPUSCULAR HGB CONC 33.9 g/dL (32.0-36.0); MEAN CORPUSCULAR VOLUME 79 fl (80-97); PLATELET COUNT 376 10^3/uL (150-450); RED BLOOD COUNT 4.47 10^6/uL (3.72-5.28); RED CELL DISTRIBUTION WIDTH 15.2 % (11.5-14.0); SEGMENTED NEUTROPHILS % (AUTO) 58.2 % (42-78); TOTAL CELLS COUNTED % (AUTO) 100 %; WHITE BLOOD COUNT 9.8 10^3/uL (4.0-10.5)
[2020-01-10 15:17] LABS: ANION GAP 10 (5-19); BLOOD UREA NITROGEN 10 mg/dL (7-20); CALCIUM 10.1 mg/dL (8.4-10.2); CARBON DIOXIDE 29 mmol/L (22-30); CHLORIDE 101 mmol/L (98-107); GLUCOSE 85 mg/dL (75-110)
== END 2020-01-10 15:56 | disposition home or self-care (01) ==
LOC: ER 12:20
DX: N39.0 Urinary tract infection, site not specified (principal); R31.9 Hematuria, unspecified; R68.83 Chills (without fever); R30.0 Dysuria; R10.9 Unspecified abdominal pain; R35.0 Frequency of micturition; R39.15 Urgency of urination; M54.9 Dorsalgia, unspecified
CPT/HCPCS: 99283; 36415; 87086; 85025; 87088; 80048; 81001; A9270

== ENCOUNTER 2020-05-30 14:28 | Emergency (ER) | payer MEDICARE, MEDICAID ==
[2020-05-30 14:44] VITALS: BP 122/73
[2020-05-30] MEDS ORDERED: ONDANSETRON HCL INJ/PF 4 MG/2 ML SDV IV ONE (14:53)
[2020-05-30] MEDS ORDERED: NORMAL SALINE 1000 ML 1,000 ML IV ONE ×2 (14:53→18:30)
--- NOTE | 2020-05-30 14:58 | ER Document Report ---
ED Medical Screen (RME) - General Chief Complaint: Flank Pain Stated Complaint: PAINFUL URINATION,LEFT FLANK PAIN Time Seen by Provider: 05/30/20 14:52 Primary Care Provider: EDWAR BOONE PA-C [Primary Care Provider] - Follow up as needed TRAVEL OUTSIDE OF THE [place] IN LAST 30 DAYS: No - HPI Notes: 05/30/20 14:54 35-year-old female presents emergency [place] for complaints of nausea vomiting, not having a bowel movement in the last 6 days, overall abdominal discomfort as well as left flank pain. Patient states she vomited 3 times today. Patient states she usually has a bowel movement every day so it is abnormal for her to have 6 days without having a bowel movement, states she passed some flatus yesterday but none today. Did try a laxative today without any relief. Last menstrual cycle was April 17, 2020. Patient has a history of tubal ligation. Patient was treated on May 03 for a UTI with Macrobid patient is complaining of some dysuria that started today. Denies any fevers chills, chest pain, shortness of breath. I have greeted and performed a rapid initial assessment of this patient. A comprehensive ED assessment and evaluation of the patient, analysis of test results and completion of the medical decision making process will be conducted by additional ED providers. PHYSICAL EXAMINATION: GENERAL: Well-appearing, well-nourished and in no acute distress. CV: s1, s2 regular LUNGS: No respiratory distress abd: Abd distention, L CVA tenderness appreciated. Musculoskeletal: Normal range of motion NEUROLOGICAL: Normal speech, normal gait. SKIN: Warm, Dry, normal turgor, no rashes or lesions noted. 05/30/20 14:55 - Related Data Allergies/Adverse Reactions: iodine Allergy (Verified 05/30/20 14:47) Hives Penicillins Allergy (Verified 05/30/20 14:47) Home Medications: benzotropine, latuda, trintellix, propanolol Past Medical History - Social History Chew tobacco use (# tins/day): No Frequency of alcohol use: Social Drug Abuse: None - Past Medical History Cardiac Medical History: Reports: Hx Hypercholesterolemia Renal/ Medical History: Denies: Hx Peritoneal Dialysis Psychiatric Medical History: Reports: Hx Bipolar Disorder, Hx Depression Past Surgical History: Reports: Hx Breast Surgery, Hx Cholecystectomy, Hx Tubal Ligation Physical Exam - Vital signs Vitals: Temp Pulse Resp BP Pulse Ox 97.9 F 82 18 122/73 100 05/30/20 14:43 05/30/20 14:43 05/30/20 14:43 05/30/20 14:43 05/30/20 14:43 Course - Vital Signs Vital signs: Temp Pulse Resp BP Pulse Ox 97.9 F 82 18 122/73 100 05/30/20 14:43 05/30/20 14:43 05/30/20 14:43 05/30/20 14:43 05/30/20 14:43 Doctor's Discharge - Discharge Referrals: EDWAR BOONE PA-C [Primary Care Provider] - Follow up as needed
[2020-05-30] MEDS ORDERED: DIPHENHYDRAMINE HCL 50 MG/ML VIAL IV ONE (15:00)
[2020-05-30] MEDS ORDERED: METHYLPREDNISOLONE INJ 125 MG/2 ML SDV IV ONE (15:00)
[2020-05-30 16:04] LABS: AMORPHOUS SEDIMENT,URINE 1+ /HPF; APPEARANCE,URINE TURBID; BILIRUBIN,URINE NEGATIVE (NEGATIVE); COLOR,URINE AMBER; GLUCOSE, URINE NEGATIVE (NEGATIVE); KETONES,URINE NEGATIVE (NEGATIVE); LEUKOCYTE ESTERASE,URINE NEGATIVE (NEGATIVE); NITRITE,URINE NEGATIVE (NEGATIVE); PROTEIN,URINE 30 mg/dL (NEGATIVE); URINE SPECIFIC GRAVITY 1.018; UROBILINOGEN,URINE NEGATIVE mg/dL (<2.0)
[2020-05-30 16:34] LABS: ABSOLUTE EOSINOPHILS # (AUTO) 0.1 10^3/uL (0.0-0.6); ABSOLUTE MONOCYTES (AUTO) 0.7 10^3/uL (0.1-1.4); ABSOLUTE NEUT (AUTO) 13.5 10^3/uL (1.7-8.2); BASOPHILS % (AUTO) 0.3 % (0-2); EOSINOPHILS % (AUTO) 0.9 % (0-6); HEMATOCRIT 40.6 % (36.0-47.0); HEMOGLOBIN 13.4 g/dL (12.0-15.5); LYMPHOCYTES % (AUTO) 12.2 % (13-45); MEAN CORPUSCULAR HEMOGLOBIN 27.2 pg (27.0-33.4); MEAN CORPUSCULAR HGB CONC 33.1 g/dL (32.0-36.0); MEAN CORPUSCULAR VOLUME 82 fl (80-97); MONOCYTES % (AUTO) 4.2 % (3-13); PLATELET COUNT 375 10^3/uL (150-450); RED BLOOD COUNT 4.94 10^6/uL (3.72-5.28); RED CELL DISTRIBUTION WIDTH 15.7 % (11.5-14.0); SEGMENTED NEUTROPHILS % (AUTO) 82.4 % (42-78); TOTAL CELLS COUNTED % (AUTO) 100 %; WHITE BLOOD COUNT 16.4 10^3/uL (4.0-10.5)
[2020-05-30 16:54] LABS: ALBUMIN 4.6 g/dL (3.5-5.0); ALKALINE PHOSPHATASE 124 U/L (38-126); ANION GAP 11 (5-19); ASPARTATE AMINO TRANSFERASE 30 U/L (14-36); BILIRUBIN,DIRECT 0.3 mg/dL (0.0-0.4); BILIRUBIN,TOTAL 0.5 mg/dL (0.2-1.3); BLOOD UREA NITROGEN 13 mg/dL (7-20); CALCIUM 10.1 mg/dL (8.4-10.2); CARBON DIOXIDE 27 mmol/L (22-30); CHLORIDE 102 mmol/L (98-107); GLUCOSE 122 mg/dL (75-110); POTASSIUM 4.5 mmol/L (3.6-5.0); TOTAL PROTEIN 8.7 g/dL (6.3-8.2)
--- NOTE | 2020-05-30 17:18 | ER Document Report ---
ED GI/ - General Mode of Arrival: Ambulatory Information source: Patient TRAVEL OUTSIDE OF THE [place] IN LAST 30 DAYS: No - HPI Patient complains to provider of: Diarrhea, Vomiting Onset: Other - Constipation x6 days, flank pain today Timing/Duration: Persistent Quality of pain: Pressure Pain Level: 5 Location: Left flank Vaginal bleeding (Compared to normal period): None Associated symptoms: Constipation, Diarrhea, Nausea, Urinary hesitancy, Vomiting. denies: Dysuria, Fever, Urinary frequency, Urinary retention, Urinary urgency Exacerbated by: Denies Relieved by: Denies Similar symptoms previously: No Recently seen / treated by doctor: No - Related Data Home Medications: benzotropine, latuda, trintellix, propanolol <ROSAURA RAMIREZ - Last Filed: 05/30/20 20:08> <ABIMAEL RASHEED - Last Filed: 05/30/20 20:52> - General Chief Complaint: Flank Pain Stated Complaint: PAINFUL URINATION,LEFT FLANK PAIN Time Seen by Provider: 05/30/20 14:52 Primary Care Provider: EDWAR BOONE PA-C [Primary Care Provider] - Follow up as needed Notes: Patient presents complaining of constipation for the past 6 days. Patient states she took 2 laxatives at home today and has been having some diarrhea stool today. Patient complains of left flank pain today. Patient denies any fever. Patient reports some urinary hesitancy. Patient reports nausea and vomi ting x3 episodes today. (ROSAURA RAMIREZ) - Related Data Allergies/Adverse Reactions: iodine Allergy (Verified 05/30/20 14:47) Hives Penicillins Allergy (Verified 05/30/20 14:47) Past Medical History - General Information source: Patient - Social History Smoking Status: Current Every Day Smoker Chew tobacco use (# tins/day): No Frequency of alcohol use: Social Drug Abuse: None Occupation: None Lives with: Family Family History: Hypertension Patient has homicidal ideation: No - Past Medical History Cardiac Medical History: Reports: Hx Hypercholesterolemia Renal/ Medical History: Denies: Hx Peritoneal Dialysis Psychiatric Medical History: Reports: Hx Bipolar Disorder, Hx Depression Past Surgical History: Reports: Hx Breast Surgery, Hx Cholecystectomy, Hx Tubal Ligation <ROSAURA RAMIREZ - Last Filed: 05/30/20 20:08> Review of Systems - Review of Systems Constitutional: No symptoms reported. denies: Fever EENT: No symptoms reported Cardiovascular: No symptoms reported. denies: Chest pain Respiratory: No symptoms reported. denies: Cough, Short of breath Gastrointestinal: Diarrhea, Nausea, Vomiting, Constipation Genitourinary: Flank pain. denies: Dysuria Female Genitourinary: No symptoms reported Musculoskeletal: Back pain Skin: No symptoms reported Hematologic/Lymphatic: No symptoms reported Neurological/Psychological: No symptoms reported <ROSAURA RAMIREZ - Last Filed: 05/30/20 20:08> Physical Exam <ROSAURA RAMIREZ - Last Filed: 05/30/20 20:08> - Vital signs Vitals: Temp Pulse Resp BP Pulse Ox 97.9 F 82 18 122/73 100 05/30/20 14:43 05/30/20 14:43 05/30/20 14:43 05/30/20 14:43 05/30/20 14:43 - Notes Notes: PHYSICAL EXAMINATION: GENERAL: Well-appearing and in no acute distress. HEAD: Atraumatic, normocephalic. EYES: sclera anicteric, conjunctiva are normal. ENT: nares patent. Moist mucous membranes. NECK: Normal range of motion, supple without lymphadenopathy LUNGS: CTAB and equal. No wheezes rales or rhonchi. HEART: Regular rate and rhythm without murmurs ABDOMEN: Soft, nontender, normal bowel sounds, no guarding. EXTREMITIES: Normal range of motion, no pitting edema. No cyanosis. BACK: No midline tenderness, no step-off or deformity. Left CVA tenderness NEUROLOGICAL: Cranial nerves grossly intact. Normal speech. Normal gait. PSYCH: Normal mood, normal affect. SKIN: Warm, Dry, normal turgor, no rashes or lesions noted (JAMESROSAURA) Course - Laboratory Result Diagrams: 05/30/20 16:00 05/30/20 16:00 <ROSAURA RAMIREZ - Last Filed: 05/30/20 20:08> - Laboratory Result Diagrams: 05/30/20 16:00 05/30/20 16:00 <ABIMAEL RASHEED - Last Filed: 05/30/20 20:52> - Re-evaluation Re-evalutation: 05/30/20 19:50 Patient reports having a large bowel movement after drinking the oral contrast. Patient states that she is feeling much better and her pain is resolved. (ROSAURA RAMIREZ) 05/30/20 20:52 CT with nonspecific and no overtly acute findings. I did discuss details and provided patient with a copy of the report, she will follow-up with her primary care in regards to this. Patient with no complaints on my reevaluation, states she feels great and she is requesting to leave. Stable, well-appearing, asymptomatic at time of discharge. (ABIMAEL RASHEED) - Vital Signs Vital signs: Temp Pulse Resp BP Pulse Ox 97.9 F 82 18 122/73 100 05/30/20 14:43 05/30/20 14:43 05/30/20 14:43 05/30/20 14:43 05/30/20 14:43 - Laboratory Laboratory results interpreted by me: 05/30/20 05/30/20 05/30/20 15:30 16:00 16:00 WBC 16.4 H RDW 15.7 H Lymph % (Auto) 12.2 L Absolute Neuts (auto) 13.5 H Seg Neutrophils % 82.4 H Glucose 122 H Total Protein 8.7 H Urine Protein 30 H Discharge <ROSAURA RAMIREZ - Last Filed: 05/30/20 20:08> <ABIMAEL RASHEED - Last Filed: 05/30/20 20:52> - Discharge Clinical Impression: Left flank pain Constipation Qualifiers: Constipation type: unspecified constipation type Qualified Code(s): K59.00 - Constipation, unspecified Condition: Stable Disposition: HOME, SELF-CARE Instructions: Constipation ([facility]), Flank Pain ([facility]) Additional Instructions: Return immediately for any new or worsening symptoms Followup with your primary care provider, call tomorrow to make a followup appointment Referrals: EDWAR BOONE PA-C [Primary Care Provider] - Follow up as needed
--- NOTE | 2020-05-30 20:32 | RADIOLOGY REPORT (SQ) ---
EXAM DESCRIPTION: CT ABDOMEN PELVIS WITHOUT IV CONTRAST COMPLETED DATE/TME: 05/30/2020 18:29 CLINICAL HISTORY: 35 years, Female, L flank pain COMPARISON: None. TECHNIQUE: Axial images without IV contrast. Oral contrast was administered. Images stored on PACS. All CT scanners at this facility use dose modulation, iterative reconstruction, and/or weight based dosing when appropriate to reduce radiation dose to as low as reasonably achievable (ALARA). FINDINGS: Lung bases unremarkable. Small hiatal hernia versus thickening of the distal esophagus. Associated with indentation of the esophageal thickening against the cardia of the stomach. Mild hepatomegaly. Borderline spleen size. Gallbladder not seen and probably removed. No evidence for biliary dilatation. Pancreas, adrenal glands, aorta and para-aortic regions are unremarkable. Kidneys without stones or hydronephrosis. No suspicious focal lesions. Ureters are not dilated. Stomach mildly distended with oral contrast. Question mild thickening in the proximal duodenum. Could be artifact from contraction. Small bowel loops are unremarkable. Mild increased colonic stool without suspicious or wall thickening. No free fluid. CT of the pelvis demonstrates anteflexed mildly globular uterus tilted to the right. Left adnexa is unremarkable. Right adnexa not clearly identified because of presence of the uterus on the right. No free fluid or adenopathy. Increased distal colonic stool. No free fluid or adenopathy. Urinary bladder mildly distended. IMPRESSION: 1. Suspected small hiatal hernia. There is indentation of the distal esophagus against the cardia of the stomach. This has been described as pseudolesion of hiatal hernia. The possibility of a true lesion in the GE junction is felt to be unlikely. 2. Mildly distended stomach. Question mild thickening of the proximal duodenum versus artifact. 3. No suspicious renal abnormalities. 4. Mild diffuse increased colonic stool stool without significant dilatation. No evidence for appendicitis. 5. Uterus tilted to the right. Right adnexa not well evaluated. 6. Borderline hepatosplenomegaly.
== END 2020-05-30 21:00 | disposition home or self-care (01) ==
LOC: ER 14:28
DX: R10.9 Unspecified abdominal pain (principal); K59.00 Constipation, unspecified; R19.7 Diarrhea, unspecified; R11.10 Vomiting, unspecified; R30.0 Dysuria; F17.200 Nicotine dependence, unspecified, uncomplicated; E78.00 Pure hypercholesterolemia, unspecified; Z88.0 Allergy status to penicillin; Z90.49 Acquired absence of other specified parts of digestive tract
CPT/HCPCS: 99285; 96361; 96374; 96375; 36415; 83690; 85025; 81025; 80053; 81001; 74176; J1200; J2930; J2405; J7030